=== PATIENT | male | born 1955 | race Caucasian/White ===

== ENCOUNTER → 2017-10-05 | Outpatient (REF) | payer BC ==
[2017-10-05 12:48] LABS: INFLUENZA A AMPLIFICATION POSITIVE (NEGATIVE); INFLUENZA B AMPLIFICATION NEGATIVE (NEGATIVE); RSV AMPLIFICATION NEGATIVE (NEGATIVE)
== END ==
LOC: M LAB REF 12:00
DX: J11.1 Influenza due to unidentified influenza virus with other respiratory manifestations (principal)
CPT/HCPCS: 87502

== ENCOUNTER → 2017-10-18 | Outpatient (CLI) | payer BC | LOC: M WUC 10:35 | DX: S20.222A Contusion of left back wall of thorax, initial encounter (principal) | CPT/HCPCS: 71101 ==

== ENCOUNTER → 2019-08-21 | Outpatient (REF) | payer BC ==
[2019-08-21 19:33] LABS: APPEARANCE, URINE CLEAR (CLEAR); BACTERIA, URINE AUTO NEGATIVE (NEGATIVE); BILIRUBIN, URINE AUTO NEGATIVE (NEGATIVE); BLOOD, URINE BLOOD NEGATIVE (NEGATIVE); COLOR, URINE YELLOW (YELLOW); GLUCOSE, URINE (UA) AUTO NEGATIVE (NEGATIVE); KETONE, URINE AUTO TRACE mg/dL (NEGATIVE); LEUKOCYTE ESTERASE, URINE AUTO NEGATIVE (NEGATIVE); MUCUS, URINE SMALL (NEGATIVE); NITRITE, URINE AUTO NEGATIVE (NEGATIVE); PROTEIN, URINE AUTO 1+ mg/dL (NEGATIVE); RBC, URINE AUTO 4 /HPF (0-3); SPECIFIC GRAVITY URINE AUTO 1.023 (1.002-1.035); SQUAMOUS EPITHELIAL CELL UR AU 0 /HPF (0-6); WBC, URINE AUTO 1 /HPF (0-3)
== END ==
LOC: M LAB REF 18:40
PROVIDERS: ATTEND Nurse Practitioner Adult Health
DX: D64.9 Anemia, unspecified (principal)

== ENCOUNTER → 2019-09-23 | Outpatient (REF) | payer BC ==
[2019-09-23 19:24] LABS: BASO # 0.1 10^3/uL (0.0-0.2); BASO % 0.6 % (0.0-1.0); EOS # 0.5 10^3/uL (0.0-0.5); EOS % 5.7 % (0.0-3.0); HEMATOCRIT 39.5 % (42.0-52.0); HEMOGLOBIN 12.6 g/dl (13.5-17.5); LYMPH # 1.9 10^3/uL (1.5-5.0); LYMPH % 21.9 % (24.0-44.0); MEAN CORPUSCULAR HEMOGLOBIN 27.7 pg (27.0-33.0); MEAN CORPUSCULAR HGB CONC 31.9 g/dl (32.0-36.5); MEAN CORPUSCULAR VOLUME 86.8 fl (80.0-96.0); MONO # 0.7 10^3/uL (0.0-0.8); MONO % 8.2 % (0.0-5.0); NEUTROPHILS # 5.5 10^3/uL (1.5-8.5); NEUTROPHILS % 63.4 % (36.0-66.0); PLATELET COUNT, AUTOMATED 232 10^3/uL (150-450); RED BLOOD COUNT 4.55 10^6/uL (4.30-6.10); WHITE BLOOD COUNT 8.7 10^3/uL (4.0-10.0)
[2019-09-23 19:30] LABS: ALBUMIN 4.6 GM/DL (3.2-5.2); ALT/SGPT 21 U/L (12-78); BILIRUBIN,TOTAL 1.1 MG/DL (0.2-1.0); BLOOD UREA NITROGEN 17 MG/DL (7-18); CALCIUM LEVEL 9.3 MG/DL (8.8-10.2); CARBON DIOXIDE LEVEL 26 MEQ/L (21-32); CHLORIDE LEVEL 104 MEQ/L (98-107); CHOLESTEROL LEVEL 143 MG/DL (<200); CHOLESTEROL RISK RATIO 3.487 (<5); CREATININE FOR GFR 1.09 MG/DL (0.70-1.30); GLOMERULAR FILTRATION RATE > 60.0 (>49); GLUCOSE, FASTING 92 MG/DL (70-100); HDL CHOLESTEROL 41 MG/DL (>40); LDL CHOLESTEROL 72 MG/DL (<100); NON-HDL-C 102 MG/DL; POTASSIUM SERUM 4.5 MEQ/L (3.5-5.1); SODIUM LEVEL 138 MEQ/L (136-145); TOTAL PROTEIN 7.4 GM/DL (6.4-8.2); TRIGLYCERIDES LEVEL 150 MG/DL (<150)
[2019-09-23 19:39] LABS: VITAMIN B12 LEVEL 1335 PG/ML (247-911)
[2019-09-23 19:42] LABS: HEMOGLOBIN A1c 6.5 %
== END ==
LOC: M LAB REF 16:18
PROVIDERS: ATTEND Nurse Practitioner Adult Health
DX: E11.9 Type 2 diabetes mellitus without complications (principal); E78.5 Hyperlipidemia, unspecified; I10 Essential (primary) hypertension

== ENCOUNTER → 2020-01-03 | Outpatient (REF) | payer BC ==
[2020-01-03 15:19] LABS: BASO # 0.1 10^3/uL (0.0-0.2); BASO % 0.6 % (0.0-1.0); EOS # 0.5 10^3/uL (0.0-0.5); EOS % 5.8 % (0.0-3.0); HEMATOCRIT 38.3 % (42.0-52.0); HEMOGLOBIN 12.3 g/dl (13.5-17.5); LYMPH % 23.9 % (24.0-44.0); MEAN CORPUSCULAR HGB CONC 32.1 g/dl (32.0-36.5); MONO # 0.8 10^3/uL (0.0-0.8); MONO % 9.4 % (0.0-5.0); NEUTROPHILS % 59.8 % (36.0-66.0); PLATELET COUNT, AUTOMATED 296 10^3/uL (150-450); WHITE BLOOD COUNT 8.3 10^3/uL (4.0-10.0)
== END ==
LOC: M LAB REF 15:09
PROVIDERS: ATTEND Physician Assistant
DX: M25.579 Pain in unspecified ankle and joints of unspecified foot (principal)

== ENCOUNTER 2021-03-14 16:36 | Inpatient (IN) | payer BC ==
[~2021-03-14] VITALS: Ht 180.3 cm; Wt 78.8 kg
--- NOTE | 2021-03-14 17:04 | REP ---
INDICATION: fall COMPARISON: None. TECHNIQUE: Axial noncontrast images from the skull base to the thoracic inlet with coronal reformations. This CT examination was performed using the following dose reduction techniques: Automated exposure control, adjustment of mA and/or kv according to the patient's size, and use of iterative reconstruction technique. FINDINGS: Atrophy with periventricular leukomalacia and microvascular ischemic changes are appreciated. The ventricles and sulci are symmetric. Rossi-white differentiation is maintained. There is no evidence for acute intracranial hemorrhage, mass/mass effect, pathology or infarction. No extra-axial fluid collection. Calvarium is intact. Paranasal sinuses and mastoid air cells are clear. IMPRESSION: Atrophy and microvascular ischemic changes. No acute intracranial hemorrhage, infarction, or mass/mass effect. <Electronically signed by Juan Owens > 03/14/21 [id number]
--- NOTE | 2021-03-14 17:05 | REP ---
INDICATION: fall COMPARISON: None. TECHNIQUE: Axial noncontrast images from the skull base to the thoracic inlet with coronal and sagittal re-formations This CT examination was performed using the following dose reduction techniques: Automated exposure control, adjustment of mA and/or kv according to the patient's size, and use of iterative reconstruction technique. FINDINGS: Alignment is maintained. Advanced multilevel degenerative changes are appreciated including osteophytosis, endplate sclerosis, disc space narrowing and facet hypertrophy. No acute fracture/compression injury or subluxation. Paravertebral soft tissues are within normal limits. IMPRESSION: Advanced multilevel degenerative changes. No evidence for acute pathology or trauma/injury. <Electronically signed by Juan Owens > 03/14/21 [id number]
[2021-03-14] MEDS: LR 1,000 ML IV SCH (17:40)
[2021-03-14 18:20] LABS: BASO # 0.1 10^3/uL (0.0-0.2); BASO % 0.3 % (0.0-1.0); EOS # 0.1 10^3/uL (0.0-0.5); EOS % 0.5 % (0.0-3.0); HEMATOCRIT 32.2 % (42.0-52.0); HEMOGLOBIN 10.6 g/dl (13.5-17.5); LYMPH # 0.9 10^3/uL (1.5-5.0); LYMPH % 6.1 % (24.0-44.0); MEAN CORPUSCULAR HEMOGLOBIN 28.9 pg (27.0-33.0); MEAN CORPUSCULAR HGB CONC 32.9 g/dl (32.0-36.5); MEAN CORPUSCULAR VOLUME 87.7 fl (80.0-96.0); MONO # 0.8 10^3/uL (0.0-0.8); MONO % 5.3 % (2.0-8.0); NEUTROPHILS # 12.5 10^3/uL (1.5-8.5); NEUTROPHILS % 87.2 % (36.0-66.0); PLATELET COUNT, AUTOMATED 248 10^3/uL (150-450); RED BLOOD COUNT 3.67 10^6/uL (4.30-6.10); WHITE BLOOD COUNT 14.4 10^3/uL (4.0-10.0)
[2021-03-14 18:50] LABS: ALBUMIN 4.1 GM/DL (3.2-5.2); BILIRUBIN,DIRECT 0.2 MG/DL (0.0-0.2); BILIRUBIN,TOTAL 1.4 MG/DL (0.2-1.0); TOTAL PROTEIN 7.2 GM/DL (6.4-8.2)
[2021-03-14] MEDS ORDERED: ATOR40TA75 PO (19:06)
[2021-03-14] MEDS ORDERED: METF500T13 PO (19:06)
[2021-03-14] MEDS ORDERED: VALS160T3 PO (19:06)
[2021-03-14] MEDS ORDERED: ZYLO300T6 PO (19:06)
[2021-03-14] MEDS ORDERED: HYDR12CA PO (19:06)
[2021-03-14] MEDS ORDERED: METO1TAB32 PO (19:06)
[2021-03-14] MEDS ORDERED: AMLO1TAB24 PO (19:06)
--- NOTE | 2021-03-14 19:10 | REP ---
INDICATION: syncope vs seizure COMPARISON: None. TECHNIQUE: Portable AP view of the chest FINDINGS: The mediastinum and cardiac silhouette are within normal limits for portable technique. The lung hernandez are clear without acute consolidation, effusion, or pneumothorax. Skeletal structures are intact. IMPRESSION: No acute cardiopulmonary process appreciated. <Electronically signed by Juan Owens > 03/14/21 [id number]
--- NOTE | 2021-03-14 19:11 | ECGEPIP ---
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
[2021-03-14] MEDS ORDERED: HOME MED LIST COMPLETE! XX SCH (19:25)
[2021-03-14 19:47] LABS: RSV AMPLIFICATION NEGATIVE (NEGATIVE)
[2021-03-14 21:11] LABS: PROLACTIN 19.8 NG/ML (2.1-17.7)
[2021-03-14] MEDS: ATORVASTATIN 20 MG TAB PO SCH (22:06)
[2021-03-14 22:40] VITALS: BP 140/61
[2021-03-15] VITALS: BP 133/65
[2021-03-15] MEDS: LR 1,000 ML IV SCH ×2 (03:40→13:40)
[2021-03-15 04:09] VITALS: BP 121/56
--- NOTE | 2021-03-15 05:16 | HPE ---
HISTORY AND PHYSICAL DATE OF ADMISSION: 03/14/2021 CHIEF COMPLAINT: Loss of consciousness. HISTORY OF PRESENT ILLNESS: This is a 65-year-old male, who was at [facility]. He finished work at approximately 3 p.m. He left work, walked out the back door and then he does not remember anything after that until he woke up when the ambulance came. Per emergency medical service (EMS), a bystander thought he had a seizure. Emergency medical service (EMS) did not see any seizure activity. The patient on arrival was alert and oriented. He did hit the back of his head. He had a large hematoma. Upon arrival, his blood pressure was 105/55, pulse of 87, respiratory rate was 18, temperature is 97.4, pulse oximetry was 95%. Laboratory studies were drawn. White count was 14.4, hemoglobin 10.6, hematocrit 32.2, platelets were 248, total bilirubin was 1.4, AST 41, ALT 26, total creatine kinase was 75. COVID test was negative, none detected. Non-fasting glucose was 155, sodium 142, potassium 3.6, chloride 102, Co2 23, BUN was 22, creatinine was slightly elevated at 1.7, troponin was 0.02. An electrocardiogram (EKG) was done, which showed sinus rhythm with slight sinus arrhythmia, rate of 80. Imaging was obtained. CT of the head showed atrophy and microvascular ischemic changes. No acute intracranial hemorrhage, infarction or mass effect. CT of the cervical spine was done showed advanced multilevel degenerative changes. No evidence for acute pathology or trauma injury. Chest x-ray showed no acute cardiopulmonary process. The patient states that he does not remember too much of the day. He states that he had a similar incident 3 or 4 years ago after having his blood pressure medicine changed. . His only other complaint that between 1 to 2 months ago when he goes to do or reach for something, his hands tremor slightly. Currently, he has no complaint of headache. He had no loss of bowel or bladder control. He does not appear postictal. Assessment was done and the patient will be admitted to observation status to the PCU unit for closed head injury, syncopal episode. Discussed with Dr. Mckeon. He recommends an electroencephalogram (EEG) in the a.m. Prolactin level, which has been ordered and is pending. The patient will be admitted to observation status to the PCU unit for further workup and observation. He will be admitted to the service of the hospitalist. Primary care provider is Dr. Godinez from [facility]. ALLERGIES: No known allergies. SOCIAL HISTORY: He lives with his significant other. ETOH: He states he drinks beer about once a week. Smokes one pack of cigarettes per day. Recreational drug use none. PAST MEDICAL HISTORY: 1. Non-insulin dependent diabetes mellitus type 2 2. Hypertension. 3. Hypercholesterolemia. 4. Gout. PAST SURGICAL HISTORY: Release of right trigger finger, ring finger. HOME MEDICATIONS: Amlodipine 5 mg by mouth daily, which I will currently hold as his blood pressure is running 105 systolic, hydrochorothiazide 12.5 mg by mouth daily, which I will hold as creatinine is up slightly. Metoprolol succinate 25 mg by mouth daily, which I will hold secondary to blood pressure systolic being 105, allopurinol 300 mg by mouth daily, atorvastatin 40 mg by mouth every night at bedtime, metformin 500 mg by mouth twice a day with meals. FAMILY HISTORY: Reviewed and was noncontributory. REVIEW OF SYSTEMS: No complaint of headache. No blurred or double vision. No fever, no chills, no tinnitus, no hoarseness. No difficulty swallowing. No lightheadedness or vertigo. States he just does not really remember anything after working and walking out the back door when leaving work. Cardiovascular: No complaints of chest pain, shortness of breath, palpitations or edema. Respiratory: No chronic cough, no sputum production, no hemoptysis, no orthopnea, no wheeze. Gastrointestinal (GI): No nausea, vomiting or diarrhea. States he has not had much appetite over the last three days. No complaints of abdominal pain. No hematochezia or melena. No rectal bleeding. Musculoskeletal: No joint redness or swelling, other than scalp hematoma secondary to the syncopal episode. Endocrine: History of non-insulin depending diabetes type 2. Hematological: History of anemia and his hemoglobin and hematocrit are down slightly and will check an iron level. Neurological: As in history of present illness. No previous history of seizures. Psychological: No anxiety, depression or suicidal ideation. PHYSICAL EXAMINATION: 65-year-old cooperative male. Height 71 inches, weight 81.8 kg. Body mass index (BMI) 25.2. Oxygen saturation 94% on room air. Blood pressure 105/55, pulse 87, respirations 18, temperature 97.4. The patient is alert and oriented x3. Palpable hematoma back of the head. Pupils equal and react to light. Extraocular movements intact. Sclerae clear. Conjunctivae normal. No facial asymmetry. Small cuts on either side of his upper nose, abrasions from is glasses. Pharynx: [place] and moist. Tongue is midline. Neck is supple without lymphadenopathy. No thyromegaly, no goiter. Carotids 2+ without bruit. TMs are pearly bilaterally. Ear canals are clear bilaterally. Chest: Clear to auscultation without wheeze or retraction. Heart: Regular. Abdomen is benign. Bowel sounds are positive. Genitourinary () and rectal not done. Extremities show equal strength. Full range of motion. No cyanosis, clubbing or edema. Peripheral pulse equal and palpable bilaterally. Skin is warm and dry. IMPRESSION/PLAN: Closed head injury, syncopal episode, questionable seizure. Will admit to the service of the hospitalist to the PCU unit. Vital signs and neuro checks every 4 hours. Follow up on prolactin level. Order electroencephalogram (EEG) for the a.m. Place on telemetry. Vital signs and neuro checks every 2 hours. Questionable syncope. Will do carotid Doppler, 2D echocardiogram, electrocardiogram (EKG) in the a.m. Place on telemetry. History of hypertension. Blood pressure soft at 100 to 110, will hold antihypertensives and restart as needed. Non-insulin dependent diabetes mellitus type 2. Fingerstick blood sugars twice a day. Continue metformin. Hypercholesterolemia. Continue atorvastatin. Deep venous thrombosis (DVT) prophylaxis. TEDs and ambulation.
[2021-03-15 06:01] LABS: BASO % 0.4 % (0.0-1.0); EOS # 0.3 10^3/uL (0.0-0.5); EOS % 2.4 % (0.0-3.0); HEMATOCRIT 29.6 % (42.0-52.0); HEMOGLOBIN 9.7 g/dl (13.5-17.5); LYMPH # 1.7 10^3/uL (1.5-5.0); LYMPH % 16.5 % (24.0-44.0); MEAN CORPUSCULAR HEMOGLOBIN 28.4 pg (27.0-33.0); MEAN CORPUSCULAR HGB CONC 32.8 g/dl (32.0-36.5); MEAN CORPUSCULAR VOLUME 86.5 fl (80.0-96.0); MONO # 0.8 10^3/uL (0.0-0.8); MONO % 8.1 % (2.0-8.0); NEUTROPHILS # 7.4 10^3/uL (1.5-8.5); NEUTROPHILS % 72.2 % (36.0-66.0); PLATELET COUNT, AUTOMATED 217 10^3/uL (150-450); RED BLOOD COUNT 3.42 10^6/uL (4.30-6.10); WHITE BLOOD COUNT 10.2 10^3/uL (4.0-10.0)
[2021-03-15 06:29] LABS: HEMOGLOBIN A1c 5.5 %
[2021-03-15 06:46] LABS: ALBUMIN 3.5 GM/DL (3.2-5.2); ALT/SGPT 24 U/L (12-78); BILIRUBIN,TOTAL 1.6 MG/DL (0.2-1.0); BLOOD UREA NITROGEN 17 MG/DL (7-18); CARBON DIOXIDE LEVEL 27 MEQ/L (21-32); CHLORIDE LEVEL 107 MEQ/L (98-107); CPK CREATINE PHOSPHOKINASE 1477 U/L (39-308); GLOMERULAR FILTRATION RATE > 60.0 (>49); GLUCOSE, FASTING 91 MG/DL (70-100); POTASSIUM SERUM 2.7 MEQ/L (3.5-5.1); SODIUM LEVEL 142 MEQ/L (136-145); TOTAL PROTEIN 6.8 GM/DL (6.4-8.2); TROPONIN I 0.04 NG/ML (< 0.10)
[2021-03-15] MEDS ORDERED: KCL 10MEQ/100ML SWI (KRUN) 10 MEQ in IV 1 EA IV ONE (06:55)
[2021-03-15] MEDS ORDERED: POTASSIUM CHLORIDE 10 MEQ SR TABLET PO ONE ×3 (07:00→15:50)
[2021-03-15 07:23] LABS: MAGNESIUM LEVEL 0.6 MG/DL (1.8-2.4)
--- NOTE | 2021-03-15 07:27 | ECGEPIP ---
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
[2021-03-15] MEDS ORDERED: KCL 10MEQ/100ML SWI (KRUN) 10 MEQ in IV 1 EA IV SCH (07:29)
[2021-03-15] MEDS ORDERED: MAG SULF 1GM/100ML (MAG RUN) 1 GM in IV 1 EA IV SCH (07:30)
[2021-03-15 08:00] VITALS: BP 135/74
[2021-03-15] MEDS ORDERED: metFORMIN (GLUCOPHAGE) 500MG TAB PO SCH (08:00)
--- NOTE | 2021-03-15 08:22 | REP ---
INDICATION: syncope COMPARISON: None. TECHNIQUE: Real-time ultrasound evaluation and duplex Doppler interrogation of the extracranial carotid vasculature is performed. FINDINGS: Antegrade flow is observed in both vertebral arteries. Right carotid: The right common carotid artery shows diffuse intimal thickening but is otherwise unremarkable. There ismild mixed plaquing in the right carotid bulb and proximal ICA on two-dimensional scanning. Color flow and spectral Doppler interrogation are unremarkable on the right. Velocity chart right carotid: Right CCA PSV: 95 cm/S Right ICA PSV: 126 cm/S Right ICA EDV: 15 cm/S Right ECA PSV: 108 cm/S Right ICA/CCA ratio: 1.3 Left carotid: The left common carotid artery shows diffuse intimal thickening but is otherwise unremarkable. There is mild mixed plaquing in the left carotid bulb and proximal ICA on two-dimensional scanning. Color flow and spectral Doppler interrogation are unremarkable on the left. Velocity chart left carotid: Left CCA PSV: 137 cm/S Left ICA PSV: 98 cm/S Left ICA EDV: 23 cm/S Left ECA PSV: 101 cm/S Left ICA/CCA ratio: 0.7 IMPRESSION: Less than 50% category narrowing in the right internal carotid artery by Doppler velocity criteria. Less than 50% category narrowing in the left ICA by Doppler velocity criteria. <Electronically signed by Eren Waters > 03/15/21 [id number]
[2021-03-15] MEDS: MAG SULF 1GM/100ML (MAG RUN) 1 GM in IV 1 EA IV SCH ×2 (08:46→09:50)
[2021-03-15] MEDS: allopurinoL 300 MG TAB PO SCH (08:46)
--- NOTE | 2021-03-15 09:10 | IPNPDOC ---
Text Note Date of Service The patient was seen on 03/15/21. NOTE Subjective: Patient seen and examined at bedside. No acute overnight events reported. Patient voices no new medical complaints this morning. Recently has been set up to follow with PCP Dr. Godinez from [facility]. Objective: General: NAD, lying comfortably in bed HEENT: NC/AT, EOMI, PERRL Lungs: CTA B/L Heart: +S1S2, RRR Abd: soft, NT, +BS Ext: no edema Neuro: no gross focal deficits Psych: AAOx3 A/P: 65M with PMHx HTN, DM, HLD and possibly recent gastroenteritis with poor PO intake, presents for unwitnessed syncopal episode. #syncope - continue telemetry - no events noted - EEG pending, echo pending, carotid doppler - check orthostatics - fall precautions, PT #seizure? - elevated prolactin, unwitnessed syncopal episode - discussed with neurology, EEG pending, seizure precautions #rhabdomyolysis - recent LOC, possibly on the ground for prolonged duration - elevated CK - renal function normal - monitor CK #HTN - home meds on hold - continue to monitor #DM - ISS, carb consistent diet #Gout #HLD - continue statin therapy #nicotine abuse - counselling provided at bedside #DVT prophylaxis - mechanical VS,Fishbone, I+O VS, Fishbone, I+O Laboratory Tests 03/14/21 18:10 03/15/21 05:28 Vital Signs Date Time Temp Pulse Resp B/P (MAP) Pulse Ox O2 Delivery O2 Flow Rate FiO2 03/15/21 08:00 98.4 61 18 135/74 (94) 94 03/15/21 00:00 Room Air I&O- Last 24 Hours up to 6 AM 03/15/21 06:00 Intake Total 578 ml Output Total 100 ml Balance 478 ml SHANON LEMUS MD Mar 15, 2021 09:10
[2021-03-15 09:12] LABS: APPEARANCE, URINE CLEAR (CLEAR); BACTERIA, URINE AUTO NEGATIVE (NEGATIVE); BILIRUBIN, URINE AUTO NEGATIVE (NEGATIVE); BLOOD, URINE BLOOD 1+ (NEGATIVE); COLOR, URINE YELLOW (YELLOW); GLUCOSE, URINE (UA) AUTO NEGATIVE (NEGATIVE); KETONE, URINE AUTO NEGATIVE (NEGATIVE); LEUKOCYTE ESTERASE, URINE AUTO NEGATIVE (NEGATIVE); MUCUS, URINE SMALL (NEGATIVE); NITRITE, URINE AUTO NEGATIVE (NEGATIVE); PROTEIN, URINE AUTO 1+ mg/dL (NEGATIVE); RBC, URINE AUTO 2 /HPF (0-3); SPECIFIC GRAVITY URINE AUTO 1.014 (1.002-1.035); SQUAMOUS EPITHELIAL CELL UR AU 0 /HPF (0-6); UROBILINOGEN, URINE AUTO 0.2 mg/dL (0.0-2.0); WBC, URINE AUTO 1 /HPF (0-3)
[2021-03-15 12:00] VITALS: BP 145/65
[2021-03-15 13:11] LABS: BLOOD UREA NITROGEN 15 MG/DL (7-18); CALCIUM LEVEL 8.4 MG/DL (8.8-10.2); CARBON DIOXIDE LEVEL 29 MEQ/L (21-32); CHLORIDE LEVEL 106 MEQ/L (98-107); GLOMERULAR FILTRATION RATE > 60.0 (>49); GLUCOSE, FASTING 87 MG/DL (70-100); MAGNESIUM LEVEL 1.5 MG/DL (1.8-2.4); POTASSIUM SERUM 3.4 MEQ/L (3.5-5.1); SODIUM LEVEL 141 MEQ/L (136-145)
[2021-03-15] MEDS ORDERED: MAG SULF 1GM/100ML (MAG RUN) 1 GM in IV 1 EA IV ONE (15:50)
[2021-03-15] MEDS ORDERED: ANALGESIC BALM CRM 3OZ TOP PRN (15:55)
[2021-03-15 20:02] VITALS: BP 139/69
[2021-03-15] MEDS: ATORVASTATIN 20 MG TAB PO SCH (20:04)
--- NOTE | 2021-03-15 21:43 | ECHO ---
ECHOCARDIOGRAM DATE OF PROCEDURE: 03/15/2021 Age: 65 Gender: Male Height: 180 cm Weight: 82 kg REFERRING PHYSICIAN: Dr. Ramsey and Liz Grace NP INDICATION: Syncope. MEASUREMENTS: IVS 1.2 cm LV 4.5 cm LVPW 1.3 cm LA 4.3 cm Aorta 3.4 cm IVC 1.6 cm DOPPLER MEASUREMENT Mitral E wave velocity 86 Mitral A wave 86 E prime septal 10.1 E prime lateral 11.0 FINDINGS: This study is of acceptable technical quality. Patient is in sinus rhythm. Left ventricle is normal size. Mild left ventricular hypertrophy is noted. Calculated LV EF is 59% by 2D imaging. My visual estimate is around 65 to 70%. Right ventricle is of normal size and systolic function. Both atria appear mildly enlarged. Aortic valve is mildly sclerotic, but is normal mobility. Mitral and tricuspid valves appear normal. Pulmonic valve was not well seen. No pericardial effusion is noted. Inferior vena cava is of normal size. Aortic root and aortic arch appear normal. Doppler interrogation reveals competent aortic valve. There is mild mitral insufficiency. Tricuspid valve is functionally competent. Mitral inflow pattern and tissue Doppler imaging of the mitral annulus revealed most likely normal LV diastolic function. CONCLUSIONS: 1. Study is of acceptable technical quality, underlying sinus rhythm. 2. Normal LV size with mild LVH and preserved LV systolic function. Likely normal diastolic function. 3. No hemodynamically significant valvular disease. 4. Normal central venous pressure. 5. Unable to estimate pulmonary artery pressure. 6. No findings to explain syncopal event. MTDD
[2021-03-16] VITALS (12 sets, daily range): BP systolic 141–174; BP diastolic 66–88
--- NOTE | 2021-03-16 05:28 | IPNPDOC ---
Text Note Date of Service The patient was seen on 03/16/21. NOTE Alerted by nursing staff at 0500 that patient was confused and acting bizarre. I came and examined the patient who told me that he feels as though this experience was a figment of his imagination and he did not understand why he was in the hospital. Patient was alert to person and place, but not time. Patient's speech is clear, however rambles at times. Rest of neuro exam unremarkable. Nursing staff reported that patient has ripped his iv out and removed his telemetry in his confusion. F/u ct head, b1, b12 i am also placing cinc protocol for now d/t suspicion for alcoholism/possible wernicke encephalopathy VS,Josebone, I+O VS, Josebone, I+O Laboratory Tests 03/15/21 05:28 03/15/21 12:08 Vital Signs Date Time Temp Pulse Resp B/P (MAP) Pulse Ox O2 Delivery O2 Flow Rate FiO2 03/16/21 04:00 98.6 70 18 160/70 (100) 98 Room Air I&O- Last 24 Hours up to 6 AM 03/16/21 06:00 Intake Total 2350 ml Balance 2350 ml JEREMIAS PARKER Mar 16, 2021 05:28
[2021-03-16] MEDS: LR 1,000 ML IV SCH ×3 (06:07→15:08)
[2021-03-16] MEDS: LORazepam 2 MG TAB PO PRN ×2 (06:24→09:27)
--- NOTE | 2021-03-16 07:11 | REPVR ---
PROCEDURE INFORMATION: Exam: CT Head Without Contrast Exam date and time: 03/16/2021 5:46 AM Age: 65 years old Clinical indication: Injury or trauma; Fall; Blunt trauma (contusions or hematomas); Additional info: Dizzyness, confusion, recent fall struck head TECHNIQUE: Imaging protocol: Computed tomography of the head without contrast. Radiation optimization: All CT scans at this facility use at least one of these dose optimization techniques: automated exposure control; mA and/or kV adjustment per patient size (includes targeted exams where dose is matched to clinical indication); or iterative reconstruction. COMPARISON: CT Head without contrast 03/14/2021 4:50 PM FINDINGS: Brain: Stable. No acute intracranial hemorrhage or mass effect. Preservation of the zhou-white matter differentiation. Cerebral ventricles: Unremarkable. No ventriculomegaly. Paranasal sinuses: Ethmoid sinus mucosal thickening. No fluid levels. Mastoid air cells: Visualized mastoid air cells are well aerated. Vasculature: Carotid and vertebral artery calcification. Bones/joints: Bones are intact. No acute fracture. Soft tissues: Unremarkable. IMPRESSION: No acute intracranial abnormality. Electronically signed by: Juan Spence On 03/16/2021 07:11:22 AM
[2021-03-16 07:39] LABS: BASO % 0.3 % (0.0-1.0); EOS # 0.4 10^3/uL (0.0-0.5); EOS % 3.7 % (0.0-3.0); HEMATOCRIT 31.6 % (42.0-52.0); HEMOGLOBIN 10.3 g/dl (13.5-17.5); LYMPH # 1.2 10^3/uL (1.5-5.0); LYMPH % 11.7 % (24.0-44.0); MEAN CORPUSCULAR HEMOGLOBIN 28.6 pg (27.0-33.0); MEAN CORPUSCULAR HGB CONC 32.6 g/dl (32.0-36.5); MEAN CORPUSCULAR VOLUME 87.8 fl (80.0-96.0); MONO # 0.8 10^3/uL (0.0-0.8); MONO % 7.3 % (2.0-8.0); NEUTROPHILS # 8.1 10^3/uL (1.5-8.5); NEUTROPHILS % 76.2 % (36.0-66.0); PLATELET COUNT, AUTOMATED 199 10^3/uL (150-450); WHITE BLOOD COUNT 10.6 10^3/uL (4.0-10.0)
[2021-03-16] MEDS: FOLIC ACID 1 MG TAB PO SCH (07:58)
[2021-03-16] MEDS: MULTIVITAMINS/MINERALS THERAP 1 TAB PO SCH (07:58)
[2021-03-16] MEDS: THIAMINE 100 MG TAB PO SCH ×2 (07:58→20:11)
[2021-03-16] MEDS: allopurinoL 300 MG TAB PO SCH (07:59)
[2021-03-16 08:08] LABS: ALBUMIN 3.7 GM/DL (3.2-5.2); ALT/SGPT 26 U/L (12-78); BILIRUBIN,TOTAL 1.6 MG/DL (0.2-1.0); BLOOD UREA NITROGEN 10 MG/DL (7-18); CALCIUM LEVEL 8.8 MG/DL (8.8-10.2); CARBON DIOXIDE LEVEL 26 MEQ/L (21-32); CHLORIDE LEVEL 107 MEQ/L (98-107); CPK CREATINE PHOSPHOKINASE 723 U/L (39-308); CREATININE FOR GFR 0.69 MG/DL (0.70-1.30); GLOMERULAR FILTRATION RATE > 60.0 (>49); GLUCOSE, FASTING 116 MG/DL (70-100); POTASSIUM SERUM 3.9 MEQ/L (3.5-5.1); SODIUM LEVEL 137 MEQ/L (136-145); TOTAL PROTEIN 6.9 GM/DL (6.4-8.2)
[2021-03-16 09:48] LABS: VITAMIN B12 LEVEL 486 PG/ML (247-911)
[2021-03-16 11:11] LABS: MAGNESIUM LEVEL 1.4 MG/DL (1.8-2.4)
[2021-03-16] MEDS: NICOTINE 14 MG/24 HR TRANSDERMAL TD SCH (11:28)
[2021-03-16] MEDS ORDERED: OXAZEPAM 10 MG CAP PO PRN (11:45)
[2021-03-16] MEDS: MAG SULF 1GM/100ML (MAG RUN) 1 GM in IV 1 EA IV SCH ×2 (15:08→16:24)
[2021-03-16] MEDS: amLODIPine 5 MG TAB PO SCH (17:05)
[2021-03-16 17:37] LABS: ABG O2 SATURATION 95.4 % (95.0-99.0); ABG PARTIAL PRESSURE CO2 37.4 mmHg (35.0-45.0); ABG PARTIAL PRESSURE O2 76.4 mmHg (75.0-100.0); ABG STANDARD HCO3 25.4 MEQ/L (22.0-26.0); ABG TOTAL CO2 26.2 MEQ/L (23.0-31.0); ABG pH (ARTERIAL) 7.443 UNITS (7.350-7.450)
--- NOTE | 2021-03-16 18:28 | IPNPDOC ---
Text Note Date of Service The patient was seen on 03/16/21. NOTE Subjective: Patient was examined at bedside. Patient is disoriented only oriented to self not to time and place. Overnight patient was very agitated and ripped off his IV line. He was put on CIWA protocol. And did get repeat CT head which showed no abnormalities. He did receive Ativan this morning as per the CIWA protocol and has sitter beside him. Objective: General: Patient was laying in bed, disoriented, patient was given Ativan about 30 minutes prior to my examination Cardiac: S1 and S2 normal, regular rate and rhythm. Lungs: Clear to auscultation bilaterally, no wheezes or rhonchi appreciated. Abdomen: Soft, nontender, positive bowel sounds appreciated. Extremities: No edema Neurology: Patient is agitated, not oriented to place and time. Assessment and plan: 65-year-old male with a past medical history of hypertension, upj-uoriejh-xevitubxv diabetes mellitus, dyslipidemia, gout who was brought into the ED by EMS after sustaining a syncopal episode just after walking out of his work. As per the HPI the bystander did mention he had some seizure-like a ctivity but EMS did not note any on arrival. Patient does not remember any of the events. In the ED patient was evaluated and had a CT done which showed no acute pathology. He was admitted for further evaluation and treatment. Plan: Syncopal episode: -Patient initial imaging showed no acute events. -We will continue monitoring on telemetry [patient had no acute events on telemetry overnight.] -Continue fall precautions. -Echo order was already placed Questionable seizure activity: -Patient has mild elevation in prolactin, it was not unwitnessed syncopal episode. -EEG pending. -Continue seizure precautions Questionable alcohol withdrawal: -Given the patient's admission for alcohol withdrawal he might be having one given his agitation overnight. -He did get a repeat CT done overnight which was negative. -We will continue CIWA protocol -Patient also has serax as needed on board -We will start him on thiamine, folic acid and multivitamin -We will get thiamine and folic acid levels as well Altered mental status: -Complete work-up for altered mental status was ordered. -Blood cultures today -UA with reflex culture -We will get an ammonia level -We will get an ABG. Electrolyte abnormalities: -Patient was hypokalemic and hypomagnesium on the day of presentation. -His potassium was replaced and magnesium was replaced yesterday. -His potassium is back to baseline today. -His mag was low and replaced with Mg run today. Hypertension: -Patient SBP was in 170s this afternoon and was started on home medication -Amlodipine 5 mg p.o. daily Diabetes mellitus: -We will continue insulin sliding scale. -Hypoglycemic protocol in place -Continue consistent carbohydrate diet Gout: -We will continue home allopurinol 300 mg p.o. daily Dyslipidemia: -We will continue atorvastatin 40 mg p.o. nightly Current smoker: -We will start him on nicotine patch. DVT prophylaxis: -Teds and sequentials Disposition: Pending clinical improvement. Attending Attestation: I saw and evaluated patient. I agree with the findings and plan of care as documented in the residents note. Unwitnessed syncopal event, likely with head trauma, complicated with post-concussion confusion possibly with underlying dementia. Discussed with family and neurology. VS,Fishbone, I+O VS, Fishbone, I+O Laboratory Tests 03/16/21 07:24 Vital Signs Date Time Temp Pulse Resp B/P (MAP) Pulse Ox O2 Delivery O2 Flow Rate FiO2 03/16/21 17:05 74 174/79 03/16/21 11:29 97.4 17 96 Room Air I&O- Last 24 Hours up to 6 AM 03/16/21 06:00 Intake Total 2350 ml Output Total 500 ml Balance 1850 ml Florence Landeros MD Mar 16, 2021 18:28 SHANON LEMUS MD Mar 17, 2021 06:23
[2021-03-16] MEDS: ATORVASTATIN 20 MG TAB PO SCH (20:11)
[2021-03-17] VITALS (7 sets, daily range): BP systolic 130–171; BP diastolic 64–79
[2021-03-17] MEDS ORDERED: ACETAMINOPHEN TAB 650MG DOSE (2X325MG) PO PRN (00:10)
[2021-03-17] MEDS: NS 1,000 ML IV SCH ×3 (00:46→21:44)
[2021-03-17 06:20] LABS: BASO % 0.3 % (0.0-1.0); EOS # 0.4 10^3/uL (0.0-0.5); EOS % 3.5 % (0.0-3.0); HEMATOCRIT 32.7 % (42.0-52.0); HEMOGLOBIN 10.7 g/dl (13.5-17.5); LYMPH % 9.6 % (24.0-44.0); MEAN CORPUSCULAR HEMOGLOBIN 29.2 pg (27.0-33.0); MEAN CORPUSCULAR HGB CONC 32.7 g/dl (32.0-36.5); MEAN CORPUSCULAR VOLUME 89.1 fl (80.0-96.0); MONO # 0.9 10^3/uL (0.0-0.8); MONO % 8.8 % (2.0-8.0); NEUTROPHILS # 7.8 10^3/uL (1.5-8.5); NEUTROPHILS % 77.4 % (36.0-66.0); PLATELET COUNT, AUTOMATED 212 10^3/uL (150-450); RED BLOOD COUNT 3.67 10^6/uL (4.30-6.10); WHITE BLOOD COUNT 10.1 10^3/uL (4.0-10.0)
[2021-03-17 06:36] LABS: MAGNESIUM LEVEL 1.6 MG/DL (1.8-2.4)
[2021-03-17 06:42] LABS: ALBUMIN 3.4 GM/DL (3.2-5.2); ALT/SGPT 24 U/L (12-78); BILIRUBIN,TOTAL 1.7 MG/DL (0.2-1.0); BLOOD UREA NITROGEN 8 MG/DL (7-18); CALCIUM LEVEL 9.6 MG/DL (8.8-10.2); CARBON DIOXIDE LEVEL 26 MEQ/L (21-32); CHLORIDE LEVEL 106 MEQ/L (98-107); GLOMERULAR FILTRATION RATE > 60.0 (>49); GLUCOSE, FASTING 109 MG/DL (70-100); POTASSIUM SERUM 4.8 MEQ/L (3.5-5.1); SODIUM LEVEL 139 MEQ/L (136-145); TOTAL PROTEIN 7.3 GM/DL (6.4-8.2)
[2021-03-17] MEDS: MULTIVITAMINS/MINERALS THERAP 1 TAB PO SCH (08:46)
[2021-03-17] MEDS: FOLIC ACID 1 MG TAB PO SCH (08:46)
[2021-03-17] MEDS: allopurinoL 300 MG TAB PO SCH (08:46)
[2021-03-17] MEDS: NICOTINE 14 MG/24 HR TRANSDERMAL TD SCH (08:47)
[2021-03-17] MEDS: amLODIPine 5 MG TAB PO SCH (08:47)
[2021-03-17] MEDS: MAG SULF 1GM/100ML (MAG RUN) 1 GM in IV 1 EA IV SCH ×2 (08:47→09:59)
[2021-03-17] MEDS: THIAMINE 100 MG TAB PO SCH ×2 (08:49→21:42)
[2021-03-17] MEDS ORDERED: amLODIPine 5 MG TAB PO SCH (09:00)
--- NOTE | 2021-03-17 10:38 | EEG ---
ELECTROENCEPHALOGRAM DATE: 03/16/2021 DIAGNOSIS: Syncope. EEG# [id number]. REFERRING PHYSICIAN: Virgilio Ramsey MD. HISTORY: Patient is a 65-year-old who was admitted at [facility] due to episodes of seizure-like activity and scalp hematoma with history of alcoholism. This EEG was done to rule out epileptic potential. He is currently taking Lipitor, thiamine, allopurinol, folic acid, nicotine, etc. TECHNICAL DESCRIPTION: This digital EEG was recorded by 21-scalp, ear, and two EKG electrodes and was reviewed in bipolar and referential montages following reformatting in 10-20 international electrode placement system. INTERPRETATION: Patient was noted to be in mostly drowsy state during this EEG. Resting and awake background rhythm consisted of 6-7 Hz theta activity measuring 15-40 microvolts in amplitude, which was symmetric and reactive to eye opening. Attenuation of posterior dominant rhythm was seen during transition into drowsiness. Hyperventilation could not be performed. Photic stimulation remained unremarkable. Stage 2 and 3 sleep were noted and were symmetric bilaterally. EKG revealed normal sinus rhythm. No focal, lateralizing, or epileptiform abnormalities were seen. No relevant clinical activity was noted. CONCLUSION: This EEG in mostly drowsy state, stage 2 and 3 sleep is abnormal due to presence of mild generalized slowing and disorganization of background consistent with nonspecific diffuse cerebral dysfunction suggesting an encephalopathy due to multiple potential causes, including toxic, metabolic, infection, medication related, or multifocal structural brain abnormalities. Clinical correlation is recommended.
[2021-03-17] MEDS ORDERED: PROHANCE 279.3MG/ML 15ML VIAL As Ordered ONE (12:29)
--- NOTE | 2021-03-17 13:20 | REP ---
INDICATION: Altered mental status. COMPARISON: Comparison CT study of the brain March 16, 2021.. TECHNIQUE: Axial and sagittal imaging planes are utilized for T1 and T2-weighted scans. Sequences include spin-echo, fast spin echo, FLAIR, and diffusion weighted sequences. Postcontrast imaging is included. 15 mL of intravenous ProHance was administered. FINDINGS: No bony calvarial lesion is seen. Craniocervical junction and upper cervical cord are normal in appearance. There is no MR evidence of significant paranasal sinus disease. No intraorbital abnormality is seen. There is minimal generalized volume loss. Some motion artifact is seen on the circ sequences. There is no evidence of intracranial hemorrhage, mass, infarct, or midline shift. Diffusion-weighted scans show no evidence of restricted diffusion. Postcontrast images demonstrate enhancement in normal intracranial vasculature. No abnormal contrast enhancement is appreciated. IMPRESSION: Minimal generalized volume loss. Otherwise negative MRI study of the brain without and with intravenous gadolinium. <Electronically signed by Eren Waters > 03/17/21 [id number]
--- NOTE | 2021-03-17 19:48 | IPNPDOC ---
Text Note Date of Service The patient was seen on 03/17/21. NOTE Subjective: Patient was examined at bedside. Patient was alert oriented x3 today when I saw him. He reports he does not remember anything what happened yesterday and day before yesterday. Denies having any headaches, vision changes, chest pain, abdominal pain. Denies having any nausea, vomiting, diarrhea, dysuria. He does report to have right knee pain and says it is his gout which is bothering him. Reports having difficulty with weightbearing in the right leg due to his knee pain. Objective: General: Patient is alert oriented x3, sitting in chair. No apparent distress. Cardiac: S1 and S2 normal, no murmurs appreciated. Lungs: Clear to auscultation, no wheezes appreciated. Abdomen: Soft, positive bowel sounds, no tenderness on all 4 quadrants. Extremity: Mild swelling in his right knee, feels warm to touch. No pedal edema. Neurological: Patient is fully oriented to time, place, person. And does not remember anything what happened in the last [address]: 03/14/2021: Reported as:Advanced multilevel degenerative changes. No evidence for acute pathology or trauma/injury. Head CT done on 03/14/2021: Reported as:Atrophy and microvascular ischemic changes. No acute intracranial hemorrhage, infarction, or mass/mass effect. Chest x-ray done on 03/14/2021: Reported as: No acute cardiopulmonary process appreciated Vascular ultrasound done on 03/15/2021: Reported as:Less than 50% category narrowing in the right internal carotid artery by Doppler velocity criteria. Less than 50% category narrowing in the left ICA by Doppler velocity criteria. CT head without contrast done on 03/20/2021: Reported as: No acute intracranial abnormality. Brain MRI done on 03/17/2021: Reported as:Minimal generalized volume loss. Otherwise negative MRI study of the brain without and with intravenous gadolinium. EEG: Reported as:CONCLUSION: This EEG in mostly drowsy state, stage 2 and 3 sleep is abnormal due to presence of mild generalized slowing and disorg anization of background consistent with nonspecific diffuse cerebral dysfunction suggesting an encephalopathy due to multiple potential causes, including toxic, metabolic, infection, medication related, or multifocal structural brain abnormalities Assessment and plan: Assessment and plan: 65-year-old male with a past medical history of hypertension, [id number] diabetes mellitus, dyslipidemia, gout who was brought into the ED by EMS after sustaining a syncopal episode just after walking out of his work. As per the HPI the bystander did mention he had some seizure-like activity but EMS did not note any on arrival. Patient does not remember any of the events. In the ED patient was evaluated and had a CT done which showed no acute pathology. He was admitted for further evaluation and treatment. Plan: Syncopal episode: -Patient initial imaging showed no acute events. -We will continue monitoring on telemetry [patient had no acute events on telemetry overnight.] -Continue fall precautions. -Echo order was already placed Questionable seizure activity: -Patient has mild elevation in prolactin, it was not unwitnessed syncopal episode. -EEG as above. -Continue seizure precautions Questionable alcohol withdrawal: -Today as patient was alert and oriented could ask him some questions about his alcohol. -He reports to be drinking only 1 or 2 beers per day -And reports on Sunday he had about 7-8 beers. -We will continue patient on folic acid, thiamine, multivitamin. -CIWA protocol in place if needed Altered mental status: -Complete work-up for altered mental status was ordered. -Blood cultures preliminary report at 24 hours were negative no growth -Ammonia level within normal limit -ABG done was normal -Neurology was consulted for this patient and recommended getting an brain MRI -Report as above. Right knee swelling: -Likely a gout flareup patient is having. -We will start him on naproxen 500 mg twice daily. -We will get an MRI knee to rule out any septic joint[ given that patient is unable to bear weight on this joint] -If the MRI shows fluid in the joint will consult Ortho for drainage of the fluid. Electrolyte abnormalities: -Patient electrolytes were normal today -His magnesium was 1.6 and was replaced. Hypertension: -Continue home amlodipine 5 mg p.o. daily Diabetes mellitus: -We will continue insulin sliding scale. -Hypoglycemic protocol in place -Continue consistent carbohydrate diet Gout: -We will continue home allopurinol 300 mg p.o. daily Dyslipidemia: -We will continue atorvastatin 40 mg p.o. nightly Current smoker: -We will start him on nicotine patch. DVT prophylaxis: -Teds and sequentials Disposition: Pending clinical improvement. Attending Attestation: I saw and evaluated patient. I agree with the findings and plan of care as documented in the residents note. VS,Fishbone, I+O VS, Fishbone, I+O Laboratory Tests 03/17/21 05:34 Vital Signs Date Time Temp Pulse Resp B/P (MAP) Pulse Ox O2 Delivery O2 Flow Rate FiO2 03/17/21 16:00 98.5 80 18 158/74 (102) 97 Room Air I&O- Last 24 Hours up to 6 AM 03/17/21 06:00 Intake Total 2960 ml Output Total 1150 ml Balance 1810 ml Florence Landeros MD Mar 17, 2021 19:48 SHANON LEMUS MD Mar 19, 2021 06:29
[2021-03-17] MEDS: ATORVASTATIN 20 MG TAB PO SCH (21:41)
[2021-03-17] MEDS: NAPROXEN 250 MG TAB PO SCH (21:42)
[2021-03-18] MEDS: NS 1,000 ML IV SCH ×3 (02:30→12:21)
[2021-03-18 03:08] VITALS: BP 154/73
[2021-03-18 04:35] VITALS: BP 157/68
[2021-03-18 07:38] LABS: BASO % 0.3 % (0.0-1.0); EOS # 0.5 10^3/uL (0.0-0.5); EOS % 5.7 % (0.0-3.0); HEMOGLOBIN 10.6 g/dl (13.5-17.5); LYMPH # 1.2 10^3/uL (1.5-5.0); MEAN CORPUSCULAR HEMOGLOBIN 28.9 pg (27.0-33.0); MEAN CORPUSCULAR HGB CONC 33.1 g/dl (32.0-36.5); MEAN CORPUSCULAR VOLUME 87.2 fl (80.0-96.0); MONO # 1.1 10^3/uL (0.0-0.8); MONO % 12.2 % (2.0-8.0); NEUTROPHILS # 6.4 10^3/uL (1.5-8.5); NEUTROPHILS % 68.6 % (36.0-66.0); PLATELET COUNT, AUTOMATED 190 10^3/uL (150-450); RED BLOOD COUNT 3.67 10^6/uL (4.30-6.10); WHITE BLOOD COUNT 9.4 10^3/uL (4.0-10.0)
[2021-03-18 07:57] LABS: BLOOD UREA NITROGEN 11 MG/DL (7-18); CALCIUM LEVEL 8.7 MG/DL (8.8-10.2); CARBON DIOXIDE LEVEL 23 MEQ/L (21-32); CHLORIDE LEVEL 111 MEQ/L (98-107); CREATININE FOR GFR 0.72 MG/DL (0.70-1.30); GLOMERULAR FILTRATION RATE > 60.0 (>49); GLUCOSE, FASTING 116 MG/DL (70-100); POTASSIUM SERUM 4.4 MEQ/L (3.5-5.1); SODIUM LEVEL 141 MEQ/L (136-145)
[2021-03-18 08:00] VITALS: BP 148/68
[2021-03-18] MEDS: NAPROXEN 250 MG TAB PO SCH (08:15)
[2021-03-18] MEDS: allopurinoL 300 MG TAB PO SCH (08:15)
[2021-03-18] MEDS: amLODIPine 5 MG TAB PO SCH (08:15)
[2021-03-18] MEDS: THIAMINE 100 MG TAB PO SCH ×2 (08:16→22:56)
[2021-03-18] MEDS: FOLIC ACID 1 MG TAB PO SCH (08:16)
[2021-03-18] MEDS: MULTIVITAMINS/MINERALS THERAP 1 TAB PO SCH (08:16)
[2021-03-18] MEDS: NICOTINE 14 MG/24 HR TRANSDERMAL TD SCH (08:17)
[2021-03-18 10:21] LABS: MAGNESIUM LEVEL 1.6 MG/DL (1.8-2.4); URIC ACID 2.7 MG/DL (3.5-7.2)
[2021-03-18] MEDS: MAG SULF 1GM/100ML (MAG RUN) 1 GM in IV 1 EA IV SCH ×2 (11:13→12:20)
[2021-03-18 12:00] VITALS: BP 169/78
[2021-03-18] MEDS ORDERED: THIA100TA PO (12:48)
[2021-03-18] MEDS ORDERED: VITMTA PO (12:48)
[2021-03-18] MEDS ORDERED: FOLI1TAB11 PO (12:48)
[2021-03-18] MEDS ORDERED: PRED20TA PO (12:48)
[2021-03-18 14:29] VITALS: BP 164/82
--- NOTE | 2021-03-18 18:38 | IPNPDOC ---
Text Note Date of Service The patient was seen on 03/18/21. NOTE Subjective: Patient was examined at bedside. Patient was alert oriented x3. He still cannot remember what happened on the day of syncope and after that. He remembers what happened yesterday. He reports still feeling tired and says he feels like he is in a twilight zone. He reports pain in the right knee has decreased after the medication he got yesterday. Able to bear weight and move his leg. Objective: General: Patient is alert oriented x3, sitting in chair. No apparent distress. Cardiac: S1 and S2 normal, no murmurs appreciated. Lungs: Clear to auscultation, no wheezes appreciated. Abdomen: Soft, positive bowel sounds, no tenderness on all 4 quadrants. Extremity: The swelling in the right knee has reduced since yesterday, feels warm to touch but no redness. Neurological: Patient is fully oriented to time, place, person. And does not remember anything what happened in the last [address]: 03/14/2021: Reported as:Advanced multilevel degenerative changes. No evidence for acute pathology or trauma/injury. Head CT done on 03/14/2021: Reported as:Atrophy and microvascular ischemic changes. No acute intracranial hemorrhage, infarction, or mass/mass effect. Chest x-ray done on 03/14/2021: Reported as: No acute cardiopulmonary process appreciated Vascular ultrasound done on 03/15/2021: Reported as:Less than 50% category narrowing in the right internal carotid artery by Doppler velocity criteria. Less than 50% category narrowing in the left ICA by Doppler velocity criteria. CT head without contrast done on 03/20/2021: Reported as: No acute intracranial abnormality. Brain MRI done on 03/17/2021: Reported as:Minimal generalized volume loss. Otherwise negative MRI study of the brain without and with intravenous gadolinium. Echocardiogram done on 03/15/2020: Reported as:1. Study is of acceptable technical quality, underlying sinus rhythm. 2. Normal LV size with mild LVH and preserved LV systolic function. Likely normal diastolic function. 3. No hemodynamically significant valvular disease. 4. Normal central venous pressure. 5. Unable to estimate pulmonary artery pressure. 6. No findings to explain syncopal event. EEG: Reported as:CONCLUSION: This EEG in mostly drowsy state, stage 2 and 3 sleep is abnormal due to presence of mild generalized slowing and disorganization of background consistent with nonspecific diffuse cerebral dysfunction suggesting an encephalopathy due to multiple potential causes, including toxic, metabolic, infection, medication related, or multifocal structural brain abnormalities Assessment and plan: Assessment and plan: 65-year-old male with a past medical history of hypertension, [id number] diabetes mellitus, dyslipidemia, gout who was brought into the ED by EMS after sustaining a syncopal episode just after walking out of his work. As per the HPI the bystander did mention he had some seizure-like activity but EMS did not note any on arrival. Patient does not remember any of the events. In the ED patient was evaluated and had a CT done which showed no acute pathology. He was admitted for further evaluation and treatment. Plan: Syncopal episode: All his imaging shows no acute changes. -Neurology was consulted for his syncopal and altered mental status. As per neurology they feel the patient's confusion might be related to the concussion he got during the syncopal episode. And will have gradual improvement as time passes. -Continue fall precautions. Questionable seizure activity: -Patient has mild elevation in prolactin, it was not unwitnessed syncopal episode. -EEG as above. -Continue seizure precautions. Questionable alcohol withdrawal: -He reports to be drinking only 1 or 2 beers per day -And reports on Sunday he had about 7-8 beers. -We will continue patient on folic acid, thiamine, multivitamin. -CIWA protocol in place if needed Altered mental status: -Complete work-up for altered mental status was ordered. -Blood cultures preliminary report at 24 hours were negative no growth -Ammonia level within normal limit -ABG done was normal -Neurology was consulted for this patient and recommended getting an brain MRI, reported as above. Neurology suspected to be because of the confusion he had during the syncopal episode. Right knee swelling: -Likely a gout flare patient is having. - Patient did get 2 doses of naproxen [yesterday night and today morning] -We will do patient prednisone 40 mg daily from tomorrow for 3 days. -We will get an MRI knee to rule out any septic joint[ given that patient is unable to bear weight on this joint] -If the MRI shows fluid in the joint will consult Ortho for drainage of the fluid. Electrolyte abnormalities: -Patient electrolytes were normal today except the magnesium -His magnesium was 1.6 and was replaced with Mg run X2 Hypertension: -Continue home amlodipine 5 mg p.o. daily Diabetes mellitus: -We will continue insulin sliding scale. -Hypoglycemic protocol in place -Continue consistent carbohydrate diet Gout: -We will continue home allopurinol 300 mg p.o. daily Dyslipidemia: -We will continue atorvastatin 40 mg p.o. nightly Current smoker: -We will start him on nicotine patch. DVT prophylaxis: -Teds and sequentials Disposition: As from the neurology standpoint they cleared the patient to go home. Based on PT evaluation tomorrow he will be discharged Attending Attestation: I saw and evaluated patient. I agree with the findings and plan of care as documented in the residents note. VS,Fishbone, I+O VS, Fishbone, I+O Laboratory Tests 03/18/21 07:22 Vital Signs Date Time Temp Pulse Resp B/P (MAP) Pulse Ox O2 Delivery O2 Flow Rate FiO2 03/18/21 14:29 164/82 (109) 03/18/21 12:00 97.5 63 16 97 Room Air I&O- Last 24 Hours up to 6 AM 03/18/21 06:00 Intake Total 4080 ml Output Total 1675 ml Balance 2405 ml Florence Landeros MD Mar 18, 2021 18:38 SHANON LEMUS MD Mar 19, 2021 06:33
[2021-03-18 20:00] VITALS: BP 157/74
[2021-03-18] MEDS: ATORVASTATIN 20 MG TAB PO SCH (21:00)
[2021-03-19] VITALS: BP 156/74
[2021-03-19] MEDS: NS 1,000 ML IV SCH ×3 (00:37→23:03)
[2021-03-19 08:00] VITALS: BP 152/74
[2021-03-19] MEDS: allopurinoL 300 MG TAB PO SCH (08:08)
[2021-03-19] MEDS: FOLIC ACID 1 MG TAB PO SCH (08:08)
[2021-03-19] MEDS: amLODIPine 5 MG TAB PO SCH (08:08)
[2021-03-19] MEDS: predniSONE 20 MG TAB PO SCH (08:08)
[2021-03-19] MEDS: MULTIVITAMINS/MINERALS THERAP 1 TAB PO SCH (08:08)
[2021-03-19] MEDS: NICOTINE 14 MG/24 HR TRANSDERMAL TD SCH (08:09)
[2021-03-19 08:30] VITALS: BP 164/78
[2021-03-19 09:52] LABS: BLOOD UREA NITROGEN 11 MG/DL (7-18); CALCIUM LEVEL 8.7 MG/DL (8.8-10.2); CARBON DIOXIDE LEVEL 24 MEQ/L (21-32); CHLORIDE LEVEL 109 MEQ/L (98-107); CREATININE FOR GFR 0.69 MG/DL (0.70-1.30); GLOMERULAR FILTRATION RATE > 60.0 (>49); GLUCOSE, FASTING 126 MG/DL (70-100); MAGNESIUM LEVEL 1.5 MG/DL (1.8-2.4); POTASSIUM SERUM 4.3 MEQ/L (3.5-5.1); SODIUM LEVEL 143 MEQ/L (136-145)
[2021-03-19 10:00] VITALS: BP 155/78
[2021-03-19] MEDS: MAG SULF 1GM/100ML (MAG RUN) 1 GM in IV 1 EA IV SCH ×2 (12:38→14:26)
[2021-03-19 14:00] VITALS: BP 149/78
--- NOTE | 2021-03-19 16:24 | CR ---
CONSULTATION DATE: 03/17/2021 REFERRING PHYSICIAN: Dr. Wale Nielson REASON FOR CONSULTATION: Loss of consciousness. HISTORY OF PRESENT ILLNESS: Tutu Benavides is a 65-year-old man who works at [employer]. He finished his work around 3 p.m. He left work, walked out the back door, and does not remember anything after that. He woke up in the ambulance. Per emergency medical service, a bystander thought that he had a seizure. Emergency medical services (EMS) did not see any seizure activity. Patient was alert on arrival and oriented. He hit the back of his head. He had a hematoma of scalp. There was concern of excessive alcohol intake, and patient was put on Serax. Patient has off and on back pain. He denies any headaches, neck pain, dysphagia, dysarthria, diplopia, urinary incontinence, or seizures in past. Patient has taken a few days to improve his mentation. MEDICAL HISTORY: 1. Type 2 diabetes. 2. Hypertension. 3. Dyslipidemia. 4. Gout. ALLERGIES: None. SOCIAL HISTORY: He lives with his significant other. He occasionally drinks beer. He smokes one pack per day. He denies illicit drugs. ALLERGIES: None. HOME MEDICATIONS: - amlodipine 5 mg by mouth daily - hydrochlorothiazide 12.5 mg by mouth daily - metoprolol extended release 25 mg by mouth daily - allopurinol 300 mg by mouth daily - atorvastatin 40 mg by mouth daily - metformin 500 mg by mouth twice a day FAMILY HISTORY: Unremarkable and noncontributory. PHYSICAL EXAMINATION: Temperature 98.5, pulse 80, respiratory rate 18, blood pressure 158/74, 97% saturation on room air. HEART: Regular rate and rhythm. LUNGS: Clear to auscultation. ABDOMEN: Soft, nontender, nondistended. No pedal edema. No musculoskeletal abnormalities. No rash. No signs of meningeal irritation. Patient is awake, alert, oriented to place, person, and team. Normal speech, comprehension, and repetition. Extraocular muscles are intact. No facial weakness. Tongue and uvula are midline. Strength 5/5 in all four extremities. Deep tendon reflexes 2+ throughout. Normal sensation. Gait is minimally unsteady. DIAGNOSTIC STUDIES: MRI scan of brain showed mild atrophy. WBC were 10.1. Vitamin B12 was 486. CK was 723. Prolactin level was 19.8. EEG showed mild slowing and encephalopathy. There were no epileptiform discharges. His COVID, influenza, and RSV testing were unremarkable. His liver functions were normal. Ammonia level was 12. ASSESSMENT: 1. Episode of loss of consciousness with head injury. 2. Concern for vasovagal syncope, hypotensive syncope, and seizure. 3. Mild concussion as a result of his fall and head injury. PLAN: 1. [facility] rules and regulations regarding driving were explained. 2. Physical and occupational therapy. 3. Taper off Serax, and once medically stable patient can be discharged home.
[2021-03-19] MEDS: ATORVASTATIN 20 MG TAB PO SCH (20:05)
[2021-03-19 22:00] VITALS: BP 146/70
[2021-03-20 05:27] VITALS: BP 166/91
[2021-03-20] MEDS: predniSONE 20 MG TAB PO SCH (08:49)
[2021-03-20] MEDS: amLODIPine 5 MG TAB PO SCH (08:49)
[2021-03-20] MEDS: MULTIVITAMINS/MINERALS THERAP 1 TAB PO SCH (08:50)
[2021-03-20] MEDS: allopurinoL 300 MG TAB PO SCH (08:50)
[2021-03-20] MEDS: NICOTINE 14 MG/24 HR TRANSDERMAL TD SCH ×2 (08:50→08:51)
[2021-03-20] MEDS: NS 1,000 ML IV SCH ×2 (08:50→19:10)
[2021-03-20] MEDS: FOLIC ACID 1 MG TAB PO SCH (08:50)
[2021-03-20 14:00] VITALS: BP 141/71
[2021-03-20] MEDS: ATORVASTATIN 20 MG TAB PO SCH (20:11)
[2021-03-21 06:00] VITALS: BP 142/72
[2021-03-21] MEDS: FOLIC ACID 1 MG TAB PO SCH (08:55)
[2021-03-21] MEDS: NICOTINE 14 MG/24 HR TRANSDERMAL TD SCH ×2 (08:55→09:00)
[2021-03-21] MEDS: MULTIVITAMINS/MINERALS THERAP 1 TAB PO SCH (08:55)
[2021-03-21 08:57] VITALS: BP 159/72
[2021-03-21] MEDS: predniSONE 20 MG TAB PO SCH (08:57)
[2021-03-21] MEDS: allopurinoL 300 MG TAB PO SCH (08:57)
[2021-03-21] MEDS: amLODIPine 5 MG TAB PO SCH (08:57)
[2021-03-21] MEDS ORDERED: PRED10TA2 PO (10:12)
--- NOTE | 2021-04-10 19:16 | DS.PDOC ---
Discharge Summary General Date of Admission Mar 16, 2021 at 10:03 Date of Discharge 03/21/2021 Discharge Summary PROCEDURES PERFORMED DURING STAY: [None]. DISCHARGE DIAGNOSES: Syncopal episode Questionable seizure activity: Questionable alcohol withdrawal: Altered mental status Right knee swelling: Electrolyte abnormalities: Hypertension: Diabetes mellitus: Gout: Dyslipidemia: Nicotine abuse: COMPLICATIONS/CHIEF COMPLAINT: Closed Head Injury, Syncope. HOSPITAL COURSE: 65-year-old male with a past medical history of hypertension, non-insulin- dependent diabetes mellitus, dyslipidemia, gout who was brought into the ED by EMS for a witnessed syncopal episode, with possible seizure like activity. Patient unaware and does not recall any details of this event. In the ED patient was evaluated and had a CT done which showed no acute pathology. He was admitted for further evaluation and treatment. Hospital stay complicated with confusion. Syncopal episode: All his imaging shows no acute changes. -Neurology was consulted for his syncopal and altered mental status. As per neurology they feel the patient's confusion might be related to the concussion he got during the syncopal episode. And will have gradual improvement as time passes. -Continue fall precautions. Questionable seizure activity: -Patient has mild elevation in prolactin, it was not unwitnessed syncopal episode. -EEG as above. -Continue seizure precautions. Questionable alcohol withdrawal: -He reports to be drinking only 1 or 2 beers per day -And reports on Sunday he had about 7-8 beers. -We will continue patient on folic acid, thiamine, multivitamin. -CIWA protocol in place if needed Altered mental status: -Complete work-up for altered mental status was ordered. -Blood cultures preliminary report at 24 hours were negative no growth -Ammonia level within normal limit -ABG done was normal -Neurology was consulted for this patient and recommended getting an brain MRI, reported as above. Neurology suspected to be because of the confusion he had during the syncopal episode. Right knee swelling: -Likely a gout flare patient is having. - Patient did get 2 doses of naproxen [yesterday night and today morning] -If the MRI shows fluid in the joint will consult Ortho for drainage of the fluid. Electrolyte abnormalities: -repleted Hypertension: -Continue home amlodipine 5 mg p.o. daily Diabetes mellitus: -We will continue insulin sliding scale. -Hypoglycemic protocol in place -Continue consistent carbohydrate diet Gout: -responded well to steroid therapy; allopurinol 300 mg p.o. daily Dyslipidemia: -We will continue atorvastatin 40 mg p.o. nightly Nicotine abuse: -continue with nicotine replacement therapy DISCHARGE MEDICATIONS: Please see below. ALLERGIES: Please see below. PHYSICAL EXAMINATION ON DISCHARGE: VITAL SIGNS: Please see below. General: Patient is alert oriented x3, sitting in chair. No apparent distress. HEENT: NC Cardiac: S1 and S2 normal, no murmurs appreciated. Lungs: Clear to auscultation, no wheezes appreciated. Abdomen: Soft, positive bowel sounds, no tenderness on all 4 quadrants. Extremity: no edema, RLE knee swelling much improved, minimally warm to touch Psych: AAOx3 with prompting Neurological: no gross focal deficits LABORATORY DATA: Please see below. ACTIVITY: [As tolerated]. DISPOSITION: Home Health Service. DISCHARGE INSTRUCTIONS: 1. PCP in 3-5 days 2. Neurology as directed DISCHARGE CONDITION: [Stable]. TIME SPENT ON DISCHARGE: 35 minutes. Discharge Medications Scheduled Allopurinol (Zyloprim) 300 Mg Tablet, 300 MG PO DAILY, (Reported) Amlodipine Besylate (Amlodipine Besylate) 5 Mg Tablet, 5 MG PO DAILY, (Reported) Atorvastatin Calcium (Atorvastatin Calcium) 40 Mg Tablet, 40 MG PO QHS, (Reported) Folic Acid (Folic Acid) 1 Mg Tablet, 1 MG PO DAILY Hydrochlorothiazide (Hydrochlorothiazide) 12.5 Mg Capsule, 12.5 MG PO DAILY, (Reported) Metformin HCl (Metformin HCl) 500 Mg Tablet, 500 MG PO BID, (Reported) Metoprolol Succinate (Metoprolol Succinate) 25 Mg Tab.er.24h, 25 MG PO DAILY, (Reported) Multivitamins (Thera M Plus Tablet) 1 Each Tablet, 1 TAB PO DAILY Prednisone (Prednisone) 10 Mg Tablet, 10 MG PO TAPER Take 3 tabs daily x 1 days, then 2 tabs daily x 1 days, then 1 tabs daily x 1 days, and stop Thiamine Hcl (Vitamin B-1) 100 Mg Tablet, 100 MG PO BID Allergies Coded Allergies: No Known Allergies (Verified Allergy, Unknown, 03/14/21) SHANON LEMUS MD Apr 10, 2021 19:16
== END 2021-03-21 15:05 | disposition home health service (06) | DRG 204 ==
LOC: EDBD 16:36 → M ED 16:36 → M ED INP 16:37 → M PCU 22:38 → OBSVTOIN 03-16 10:03 → M MS5PR 03-19 08:30
PROVIDERS: ADMIT Family Medicine; ATTEND Internal Medicine
DX: R55 Syncope and collapse (principal); R56.9 Unspecified convulsions; M62.82 Rhabdomyolysis; E83.42 Hypomagnesemia; S06.0X9A Concussion with loss of consciousness of unspecified duration, initial encounter; E11.9 Type 2 diabetes mellitus without complications; I10 Essential (primary) hypertension; E87.6 Hypokalemia; F10.239 Alcohol dependence with withdrawal, unspecified; M10.9 Gout, unspecified; E78.00 Pure hypercholesterolemia, unspecified; F17.200 Nicotine dependence, unspecified, uncomplicated; Z79.899 Other long term (current) drug therapy; E78.5 Hyperlipidemia, unspecified; W18.30XA Fall on same level, unspecified, initial encounter; Y92.009 Unspecified place in unspecified non-institutional (private) residence as the place of occurrence of the external cause

== ENCOUNTER → 2021-06-17 | Outpatient (REF) | payer BC ==
[~2021-06-17] MED LIST: ALLO300T2 PO; AMLO1TAB24 PO; AMLO2.5T3 PO; ATOR40TA75 PO; CEPH500C PO; COMMENTS; FOLI1TAB11 PO; HYDR12CA PO; METF500T13 PO; METO1TAB32 PO; PRED10TA2 PO; PRED20TA PO; THIA100TA PO; VALS160T3 PO; VALS320T3 PO; VITMTA PO; ZYLO300T6 PO
[2021-06-17 12:43] LABS: BASO # 0.1 10^3/uL (0.0-0.2); BASO % 0.4 % (0.0-1.0); EOS # 0.5 10^3/uL (0.0-0.5); EOS % 4.7 % (0.0-3.0); HEMATOCRIT 33.6 % (42.0-52.0); HEMOGLOBIN 10.9 g/dl (13.5-17.5); LYMPH # 2.1 10^3/uL (1.5-5.0); LYMPH % 18.6 % (24.0-44.0); MEAN CORPUSCULAR HEMOGLOBIN 29.1 pg (27.0-33.0); MEAN CORPUSCULAR HGB CONC 32.4 g/dl (32.0-36.5); MEAN CORPUSCULAR VOLUME 89.6 fl (80.0-96.0); MONO # 0.8 10^3/uL (0.0-0.8); MONO % 7.4 % (2.0-8.0); NEUTROPHILS # 7.7 10^3/uL (1.5-8.5); NEUTROPHILS % 68.5 % (36.0-66.0); PLATELET COUNT, AUTOMATED 264 10^3/uL (150-450); RED BLOOD COUNT 3.75 10^6/uL (4.30-6.10); WHITE BLOOD COUNT 11.2 10^3/uL (4.0-10.0)
== END ==
LOC: M LAB REF 12:30
PROVIDERS: ATTEND Physician Assistant
DX: M19.90 Unspecified osteoarthritis, unspecified site (principal)

== ENCOUNTER 2021-06-19 10:20 | Inpatient (IN) | payer BC ==
[~2021-06-19 10:20] MED LIST changes: -ALLO300T2 PO; -AMLO2.5T3 PO; -CEPH500C PO; -COMMENTS; -VALS320T3 PO
[2021-06-19] MEDS ORDERED: DIGOXIN INJ 0.5 MG/2 ML AMP (J1160) IV ONE ×2 (10:50→12:10)
[2021-06-19] MEDS ORDERED: NS 1,000 ML IV ONE (10:55)
[2021-06-19 11:01] LABS: BASO # 0.1 10^3/uL (0.0-0.2); BASO % 0.4 % (0.0-1.0); EOS # 0.4 10^3/uL (0.0-0.5); EOS % 2.8 % (0.0-3.0); HEMATOCRIT 34.1 % (42.0-52.0); HEMOGLOBIN 11.2 g/dl (13.5-17.5); LYMPH # 2.8 10^3/uL (1.5-5.0); MEAN CORPUSCULAR HEMOGLOBIN 29.2 pg (27.0-33.0); MEAN CORPUSCULAR HGB CONC 32.8 g/dl (32.0-36.5); MEAN CORPUSCULAR VOLUME 88.8 fl (80.0-96.0); MONO # 0.9 10^3/uL (0.0-0.8); MONO % 6.1 % (2.0-8.0); NEUTROPHILS # 9.8 10^3/uL (1.5-8.5); NEUTROPHILS % 69.7 % (36.0-66.0); PLATELET COUNT, AUTOMATED 308 10^3/uL (150-450); RED BLOOD COUNT 3.84 10^6/uL (4.30-6.10); WHITE BLOOD COUNT 14.1 10^3/uL (4.0-10.0)
--- NOTE | 2021-06-19 11:03 | REP ---
INDICATION: seizure COMPARISON: 03/14/2021 TECHNIQUE: Portable AP view of the chest FINDINGS: The mediastinum and cardiac silhouette are stable and within normal limits for portable technique. The lung hernandez are clear without acute consolidation, effusion, or pneumothorax. Skeletal structures are intact. IMPRESSION: No acute cardiopulmonary process appreciated. <Electronically signed by Juan Owens > 06/19/21 [id number]
[2021-06-19 12:02] LABS: BLOOD UREA NITROGEN 17 MG/DL (7-18); CALCIUM LEVEL 7.9 MG/DL (8.8-10.2); CARBON DIOXIDE LEVEL 20 MEQ/L (21-32); CHLORIDE LEVEL 102 MEQ/L (98-107); CK-MB VALUE MASS 2.4 NG/ML (<3.6); CPK CREATINE PHOSPHOKINASE 161 U/L (39-308); CREATININE FOR GFR 1.66 MG/DL (0.70-1.30); ETHYL ALCOHOL (ETHANOL) 0.003 % (0.000-0.010); GLOMERULAR FILTRATION RATE 44.5 (>49); GLUCOSE, FASTING 152 MG/DL (70-100); MAGNESIUM LEVEL 0.5 MG/DL (1.8-2.4); MB/CK RELATIVE INDEX 1.49 (< OR =4); POTASSIUM SERUM 3.1 MEQ/L (3.5-5.1); SODIUM LEVEL 138 MEQ/L (136-145); TROPONIN I < 0.02 NG/ML (< 0.10)
[2021-06-19] MEDS ORDERED: MAG SULF 1GM/100ML (MAG RUN) 1 GM in IV 1 EA IV ONE ×3 (12:05→19:30)
[2021-06-19] MEDS ORDERED: KCL 10MEQ/100ML SWI (KRUN) 10 MEQ in IV 1 EA IV ONE (12:10)
[2021-06-19 12:24] LABS: RSV AMPLIFICATION NEGATIVE (NEGATIVE)
[2021-06-19] MEDS ORDERED: OXAZEPAM 10 MG CAP PO SCH (12:55)
[2021-06-19] MEDS ORDERED: ACETAMINOPHEN TAB 650MG DOSE (2X325MG) PO PRN (13:15)
[2021-06-19] MEDS ORDERED: GLUCAGON INJ 1MG VIAL SC PRN (13:15)
[2021-06-19] MEDS ORDERED: GLUCOSE 4GM CHEW TABLET PO PRN (13:15)
[2021-06-19] MEDS ORDERED: MAALOX 30 ML SUSP *UDC PO PRN (13:15)
[2021-06-19] MEDS ORDERED: DEXTROSE 50% 50 ML SYRINGE IV PRN (13:15)
[2021-06-19] MEDS ORDERED: MOM 30ML SUSPENSION UDC PO PRN (13:15)
[2021-06-19] MEDS ORDERED: NS 2,400 ML IV ONE (13:15)
[2021-06-19] MEDS: FOLIC ACID 1 MG TAB PO SCH (13:17)
[2021-06-19] MEDS: THIAMINE 100 MG TAB PO SCH (13:17)
[2021-06-19] MEDS: MULTIVITAMINS/MINERALS THERAP 1 TAB PO SCH (13:18)
[2021-06-19] MEDS ORDERED: ALLO300T2 PO (13:29)
[2021-06-19] MEDS ORDERED: VALS320T3 PO (13:29)
[2021-06-19] MEDS ORDERED: AMLO2.5T3 PO (13:29)
[2021-06-19] MEDS ORDERED: CEPH500C PO (13:29)
[2021-06-19] MEDS ORDERED: COMMENTS (13:32)
--- NOTE | 2021-06-19 13:34 | REP ---
INDICATION: Seziure COMPARISON: 03/16/2021 TECHNIQUE: Axial noncontrast images from the skull base to the thoracic inlet with coronal reformations. This CT examination was performed using the following dose reduction techniques: Automated exposure control, adjustment of mA and/or kv according to the patient's size, and use of iterative reconstruction technique. FINDINGS: Age-related changes are appreciated. The ventricles and sulci are symmetric. Rossi-white differentiation is maintained. There is no evidence for acute intracranial hemorrhage, mass/mass effect, pathology or infarction. No extra-axial fluid collection. Calvarium is intact. Paranasal sinuses and mastoid air cells are clear. Very small scalp contusion at the vertex. IMPRESSION: Age-related changes. No acute intracranial hemorrhage, infarction, or mass/mass effect. <Electronically signed by Juan Oewns > 06/19/21 2037
[2021-06-19] MEDS ORDERED: HOME MED LIST COMPLETE! XX SCH (13:35)
--- NOTE | 2021-06-19 13:40 | HPEPDOC ---
[facility] Medical History & Physical Date of Admission Jun 19, 2021 Date of Service: Jun 19, 2021 History and Physical Chief complaint: Who was brought into the ER after he was found unresponsive History of present illness: Patient is a 65-year-old male with a PMHx of HTN, DLP, NIDDM2, Questionable prior seizure, Nicotine dependence, Gout who presented to the emergency room brought in by ambulance after he was found unresponsive. After discussion with the ER provider, patient was unresponsive and EMS was summoned. Patient was found to be combative and was given Versed. He was also noted to have atrial fibrillation and was given Cardizem IV. Upon arrival to emergency room, patient was noted to be hypotensive and tachycardic. Patient was given IV fluid resuscitation and digoxin. Hospital services called for further evaluation and treatment. Patient was seen and examined at the bedside. Patient appears to be oriented to person, place and time. Reports that the only thing he remembers is waking up in the emergency room. Patient notes that he has not experience any tongue biting, loss of control of his bowel or bladder. Currently he denies any headache, chest pain, shortness breath, cough, palpitations, nausea, vomiting, abdominal pain, constipation, diarrhea, or urinary discomfort. He is unaware of any recent fevers or chills. Reports that his appetite has been fairly normal and his weight has been relatively consistent. 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 [employer] Review of Systems: 10 point review of systems complete, all negative otherwise stated in HPI Physical exam: - Vitals: BP [114/56], HR [140], RR [18], Sat [99%RA], Temp [97.1F] - General: Lying in bed, Speaking in full sentences, AAOx3 - HEENT: NC, AT, PERRLA - CVS: RRR, +S1S2, - Murmurs / rubs / gallops - Lungs: Fair air entry bilaterally, No appreciable wheezing / rales / rhonchi - Abdomen: Soft, Non-distended, Non-tender - Extremities: No lower extremity edema, No calf tenderness - Neuro: 5/5 strength at upper and lower extremities bilaterally; CN 2-12 grossly intact - Skin: No visible rashes Labs: See below Imaging: CXR 06/19: No acute cardiopulmonary process appreciated. EKG: See below Assessment and Plan: Syncope / Found down - possibly 2/2 seizure - possibly 2/2 withdrawal - Presented to ER brought in by EMS after he was found down; sees Versed in the field after he was combative - Currently patient is oriented to person, place and time - Physical does not reveal any focal deficits - Patient has had a prior admission 03/2021 with similar presentation - Will get CT head stat / Prolactin - Discussed with Neurology; will start Keppra 750 BID Suspected alcohol withdrawal - Patient reports that he only drinks one beer a week - Ethanol level negative currently - Will start Thiamine / Folate / MVI - Will start Serax Atrial fibrillation - Patient was found to have heart rates of greater than 140 - Denies any chest pain, shortness breath or palpitations - EKG reviewed - Troponin negative; will continue trend - s/p Digoxin in the ER and Diltiazem on route - Will c/w telemetry / will get ECHO stat - Will start Metoprolol tartrate q6h - Advised patient of risk of stroke given atrial fibrillation; discussed risks and benefits of anticoagulation therapy excepts risks and will start anticoagulation - Will start Heparin drip (once CT head results) ARELY - likely 2/2 pre-renal etiology - Will check urine electrolyte / renal US - Will avoid nephrotoxic medications - Will start IV fluid hydration Electrolyte abnormalities - Hypokalemia / Hypomagnesemia - Will supplement via IV and PO routes - Will repeat labs HTN - Hypotensive on arrival - Will hold Amlodipine / Valsartan / HCTZ DLP - c/w Atorvastatin NIDDM2 - Will start ISS Questionable prior seizure - Prior admission 03/2021 Nicotine dependence - Advised smoking cessation - Will start Nicotine patch Gout - c/w Allopurinol DVT prophylaxis - Will start Heparin drip (After CT head results) Disposition: - Anticipate 2 midnight stay - Awaiting clinical improvement Vital Signs Vital Signs Date Time Temp Pulse Resp B/P (MAP) Pulse Ox O2 Delivery O2 Flow Rate FiO2 06/19/21 12:28 140 06/19/21 11:40 100/56 (71) 06/19/21 11:35 99 06/19/21 10:48 97.1 Laboratory Data Labs 24H Laboratory Tests 2 06/19/21 10:53: Immature Granulocyte % (Auto) 1.0, Neutrophils (%) (Auto) 69.7H, Lymphocytes (%) (Auto) 20.0L, Monocytes (%) (Auto) 6.1, Eosinophils (%) (Auto) 2.8, Basophils (%) (Auto) 0.4, Neutrophils # (Auto) 9.8H, Lymphocytes # (Auto) 2.8, Monocytes # (Auto) 0.9H, Eosinophils # (Auto) 0.4, Basophils # (Auto) 0.1, Nucleated Red Blood Cells % (auto) 0.0, Anion Gap 16, Glomerular Filtration Rate 44.5L, Jewel cium Level 7.9L, Magnesium Level 0.5*L, Total Creatine Kinase 161, Creatine Kinase MB 2.4, Creatine Kinase MB Relative Index 1.49, Troponin I < 0.02, Thyroid Stimulating Hormone (TSH) 3.030, Ethyl Alcohol Level 0.003 06/19/21 11:34: Coronavirus (COVID-19)(PCR) NEGATIVE, Influenza Type A (RT-PCR) NEGATIVE, Influenza Type B (RT-PCR) NEGATIVE, Respiratory Syncytial Virus (PCR) NEGATIVE CBC/BMP Laboratory Tests 06/19/21 10:53 Home Medications Scheduled Amlodipine Besylate (Amlodipine Besylate) 2.5 Mg Tablet, 2.5 MG PO DAILY Atorvastatin Calcium (Atorvastatin Calcium) 40 Mg Tablet, 40 MG PO QHS Cephalexin (Cephalexin) 500 Mg Capsule, 1,000 MG PO BID Metformin HCl (Metformin HCl) 500 Mg Tablet, 500 MG PO BID Metoprolol Succinate (Metoprolol Succinate) 25 Mg Tab.er.24h, 25 MG PO DAILY Valsartan/Hydrochlorothiazide (Valsartan-Hctz 320-25 mg Tab) 1 Each Tablet, 1 TAB PO DAILY allopurinoL (allopurinoL) 300 Mg Tablet, 300 MG PO DAILY Miscellaneous Medications [Comments] MED LIST MADE WITH EXTRNAL MED HISTORY Allergies Coded Allergies: No Known Allergies (Verified Allergy, Unknown, 03/14/21) GOYO DE SOUZA MD Jun 19, 2021 13:40
[2021-06-19] MEDS: NS 1,000 ML IV SCH ×2 (13:53→23:15)
[2021-06-19] MEDS: MAG SULF 1GM/100ML (MAG RUN) 1 GM in IV 1 EA IV SCH ×3 (14:00→18:28)
[2021-06-19] MEDS ORDERED: POTASSIUM CHLORIDE 10MEQ SR TABLET PO ONE ×2 (14:00→19:30)
--- NOTE | 2021-06-19 14:10 | REP ---
INDICATION: ARELY COMPARISON: None TECHNIQUE: Real time zhou scale ultrasound examination using curved array transducer. FINDINGS: Bilateral kidneys are normal in contour, size, echogenicity, and reniform shape with increased central sinus fat suggesting age-related medical renal disease. There is no hydronephrosis, nephrolithiasis, cystic or renal mass lesion. Right kidney measures 12.4 x 5.2 x 5.9 cm. Left kidney measures 12.3 x 4.4 x 5.1 cm with small amount of perinephric fluid. Heterogeneous enlarged prostate gland measuring 5.2 x 4.4 x 6.0 cm with mass effect on the base of the bladder noted. IMPRESSION: 1. Chronic medical renal disease. No hydronephrosis. 2. Small amount of left perinephric fluid of uncertain etiology. Correlation with urinalysis to exclude pyelonephritis may be warranted. 3. Heterogeneous enlarged prostate gland with mass effect on the base of the bladder. <Electronically signed by Juan Owens > 06/19/21 1405
[2021-06-19 14:49] LABS: CREATININE,RANDOM URINE 29.1 MG/DL
[2021-06-19] MEDS ORDERED: levETIRAcetam INJection 750 MG in D5W 100 ML IV SCH (15:00)
[2021-06-19] MEDS: OXAZEPAM 10 MG CAP PO SCH ×2 (15:35→21:17)
[2021-06-19 16:15] VITALS: BP 162/84
[2021-06-19] MEDS: HumaLOG INSULIN (NovoLOG) PER UNIT SC SCH ×2 (17:30→20:13)
[2021-06-19 17:59] LABS: INR 1.1; PROTHROMBIN TIME 14.6 SECONDS (12.7-14.5)
[2021-06-19 18:00] LABS: PARTIAL THROMBOPLASTIN TIME 28.9 SECONDS (25.9-37.0)
[2021-06-19] MEDS ORDERED: METOPROLOL TART 12.5 MG PER 1/2 TAB PO SCH (18:00)
[2021-06-19 18:11] LABS: BLOOD UREA NITROGEN 13 MG/DL (7-18); CALCIUM LEVEL 7.5 MG/DL (8.8-10.2); CARBON DIOXIDE LEVEL 25 MEQ/L (21-32); CHLORIDE LEVEL 111 MEQ/L (98-107); CREATININE FOR GFR 1.11 MG/DL (0.70-1.30); GLOMERULAR FILTRATION RATE > 60.0 (>49); GLUCOSE, FASTING 109 MG/DL (70-100); MAGNESIUM LEVEL 1.7 MG/DL (1.8-2.4); SODIUM LEVEL 144 MEQ/L (136-145)
[2021-06-19] MEDS: HEPARIN DRIP 25,000 UNITS in IV 1 EA IV SCH (18:24)
--- NOTE | 2021-06-19 19:16 | ECGEPIP ---
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
[2021-06-19 20:00] VITALS: BP 134/60
[2021-06-19] MEDS: ATORVASTATIN 20 MG TAB PO SCH (20:07)
[2021-06-19] MEDS: METOPROLOL SUCC (TopROL XL) 50MG **XL** TAB PO SCH (20:08)
[2021-06-19] MEDS: DOCUSATE SODIUM 100MG CAPSULE PO SCH (20:09)
[2021-06-20] VITALS (9 sets, daily range): BP systolic 109–139; BP diastolic 57–68
[2021-06-20] MEDS: HEPARIN SOD (PORCINE) 5000UNITS/ML 1ML VIAL/SYRINGE IV PRN (00:37)
[2021-06-20] MEDS: levETIRAcetam INJection 750 MG in D5W 100 ML IV SCH ×2 (03:07→17:08)
[2021-06-20] MEDS: NS 1,000 ML IV SCH ×2 (04:52→14:13)
[2021-06-20] MEDS: OXAZEPAM 10 MG CAP PO SCH ×3 (05:19→21:47)
[2021-06-20 07:03] LABS: APPEARANCE, URINE CLOUDY (CLEAR); BACTERIA, URINE AUTO NEGATIVE (NEGATIVE); BILIRUBIN, URINE AUTO NEGATIVE (NEGATIVE); BLOOD, URINE BLOOD 3+ (NEGATIVE); COLOR, URINE YELLOW (YELLOW); GLUCOSE, URINE (UA) AUTO NEGATIVE (NEGATIVE); KETONE, URINE AUTO NEGATIVE (NEGATIVE); LEUKOCYTE ESTERASE, URINE AUTO TRACE (NEGATIVE); NITRITE, URINE AUTO NEGATIVE (NEGATIVE); PROTEIN, URINE AUTO 2+ mg/dL (NEGATIVE); RBC, URINE AUTO TNTC /HPF (0-3); SPECIFIC GRAVITY URINE AUTO 1.012 (1.002-1.035); SQUAMOUS EPITHELIAL CELL UR AU 0 /HPF (0-6); UROBILINOGEN, URINE AUTO 0.2 mg/dL (0.0-2.0); WBC, URINE AUTO 2 /HPF (0-3)
[2021-06-20 07:05] LABS: BASO % 0.3 % (0.0-1.0); EOS # 0.5 10^3/uL (0.0-0.5); HEMATOCRIT 29.8 % (42.0-52.0); HEMOGLOBIN 9.8 g/dl (13.5-17.5); LYMPH # 1.2 10^3/uL (1.5-5.0); LYMPH % 12.9 % (24.0-44.0); MEAN CORPUSCULAR HEMOGLOBIN 29.3 pg (27.0-33.0); MEAN CORPUSCULAR HGB CONC 32.9 g/dl (32.0-36.5); MONO # 0.6 10^3/uL (0.0-0.8); NEUTROPHILS # 6.6 10^3/uL (1.5-8.5); NEUTROPHILS % 74.4 % (36.0-66.0); PLATELET COUNT, AUTOMATED 215 10^3/uL (150-450); RED BLOOD COUNT 3.35 10^6/uL (4.30-6.10); WHITE BLOOD COUNT 8.9 10^3/uL (4.0-10.0)
[2021-06-20] MEDS: HumaLOG INSULIN (NovoLOG) PER UNIT SC SCH ×4 (07:30→20:24)
[2021-06-20] MEDS: amLODIPine 5 MG TAB PO SCH (09:00)
[2021-06-20] MEDS: METOPROLOL SUCC (TopROL XL) 50MG **XL** TAB PO SCH (09:00)
[2021-06-20] MEDS: DOCUSATE SODIUM 100MG CAPSULE PO SCH ×2 (09:00→20:20)
--- NOTE | 2021-06-20 09:09 | ECHO ---
ECHOCARDIOGRAM DATE OF PROCEDURE: 06/19/2021 Age: Gender: Male Height: 180 cm Weight: 82 kg REFERRING PHYSICIAN: Karon Leon M.D. INDICATION: Abnormal EKG, atrial fibrillation. MEASUREMENTS: LV 5.3 cm IVS 0.9 cm LVPW 1.8 cm Aorta 3.6 cm LA 3.5 cm Left atrial volume index 32 (cut out) 1.7 FINDINGS: This study is of acceptable technical quality. Patient was in atrial fibrillation with rapid ventricular rate. Left ventricle is normal size and has normal contractility. I estimate the ejection fraction (EF) around 65-70%. Right ventricle is also normal size and systolic function. Left atrium is upper limits of normal size. Right atrium also appears normal. Aortic valve has three cusps. It is mildly sclerotic, but mobility is preserved. Mitral and tricuspid valves appear normal. Pulmonic valve was not well visualized. No pericardial effusion is noted. Inferior vena cava is of normal size and appropriately collapses with inspiration indicative of normal central venous pressure. Aortic root is normal. Aortic arch and abdominal aorta were not well seen. Doppler interrogation reveals competent aortic valve. There is mild mitral and mild tricuspid insufficiency. Quality of tricuspid regurgitation (TR) jet was not sufficient in order to calculate pulmonary artery pressure. Evaluation of diastolic function is not conclusive due to underlying atrial fibrillation. CONCLUSIONS: 1. Study is of acceptable technical quality. Patient is in atrial fibrillation with rapid ventricular response. 2. Normal left ventricular (LV) size with normal LV systolic function and estimated left ventricular ejection fraction (LVEF) 65-70%. 3. No significant valvular disease. 4. Normal central venous pressure, but unable to estimate pulmonary artery pressure. 6. Borderline increased left atrial size.
[2021-06-20 09:43] LABS: ALBUMIN 3.2 GM/DL (3.2-5.2); ALT/SGPT 19 U/L (12-78); BILIRUBIN,TOTAL 1.3 MG/DL (0.2-1.0); BLOOD UREA NITROGEN 10 MG/DL (7-18); CALCIUM LEVEL 8.3 MG/DL (8.8-10.2); CARBON DIOXIDE LEVEL 22 MEQ/L (21-32); CHLORIDE LEVEL 117 MEQ/L (98-107); CREATININE FOR GFR 0.94 MG/DL (0.70-1.30); GLOMERULAR FILTRATION RATE > 60.0 (>49); GLUCOSE, FASTING 113 MG/DL (70-100); MAGNESIUM LEVEL 1.8 MG/DL (1.8-2.4); SODIUM LEVEL 146 MEQ/L (136-145)
[2021-06-20] MEDS: FOLIC ACID 1 MG TAB PO SCH (10:00)
[2021-06-20] MEDS: THIAMINE 100 MG TAB PO SCH (10:00)
[2021-06-20] MEDS: allopurinoL 300 MG TAB PO SCH (10:00)
[2021-06-20] MEDS: MULTIVITAMINS/MINERALS THERAP 1 TAB PO SCH (10:00)
[2021-06-20] MEDS: HEPARIN DRIP 25,000 UNITS in IV 1 EA IV SCH (13:37)
--- NOTE | 2021-06-20 17:08 | IPNPDOC ---
Date Seen The patient was seen on 06/20/21. Progress Note SUBJECTIVE: Patient is a 65-year-old male who was found unresponsive at his home after going to the bathroom. At the ED he was found to be combative and was given Versed. He was also noted to be hypotensive and tachycardic on presentation was given IV fluid resuscitation and digoxin. States last night he remembers he was going to the bathroom and then nothing after that. His girlfriend Rajwinder was called for more information pertaining to the event. She said the patient was complaining of stomach pains over the weekend and on Sunday he did not feel well still and he took an [place] and laid down on the couch. He then got up to go to the bathroom to vomit. The girlfriend then heard a fall and then went to go check on him after she heard no response. She saw patient on the ground with eyes rolled back in his head, shaking, and not responding to her commands. She then called EMS who brought him to the ED. Girlfrienmaryann also states that a similar event happen a couple months ago. I suspect she is referring to an event that happened in March. She also told us that he has been taking cephalexin 500 mg twice daily prescribed by an urgent care, since Sunday for swollen left foot. On examination patient is noted to have a very swollen right side of his tongue. OBJECTIVE PHYSICAL EXAMINATION: VITAL SIGNS: Please see below. GENERAL: 65-year-old male, resting in bed, no acute distress, says his tongue hurts. HEENT: Head normocephalic/atraumatic; eyes EOMI, PERRLA; mouth moist mucous membranes, swollen bruised tongue mainly on the right side, very poor dentition and many missing teeth CARDIOVASCULAR: Irregularly irregular RESPIRATORY: Clear to auscultation bilaterally. ABDOMINAL: Normoactive bowel sounds and nontender to palpation all 4 quadrants EXTREMITIES: 2+ radial pulses LABORATORY DATA, IMAGING STUDIES, MICROBIOLOGY: Please see below. Imaging: Head CT 06/19/2021: Age-related changes. No acute intracranial hemorrhage, infarction, or mass/mass effect. Renal ultrasound 06/19/2021: 1. Chronic medical renal disease. No hydronephrosis. 2. Small amount of left perinephric fluid of uncertain etiology. Correlation with urinalysis to exclude pyelonephritis may be warranted. 3. Heterogeneous enlarged prostate gland with mass effect on the base of the bladder. Echocardiogram: 06/19/2021 1. Study is of acceptable technical quality. Patient is in atrial fibrillation with rapid ventricular response. 2. Normal left ventricular (LV) size with normal LV systolic function and estimated left ventricular ejection fraction (LVEF) 65-70%. 3. No significant valvular disease. 4. Normal central venous pressure, but unable to estimate pulmonary artery pressure. 5. Borderline increased left atrial size.. DVT prophylaxis ordered?: Heparin ASSESSMENT AND PLAN: This is a -year-old [RACE] [GENDER] with . PROBLEMS: Syncope / Found down - possibly 2/2 seizure - possibly 2/2 withdrawal - Presented to ER brought in by EMS after he was found down; sees Versed in the field after he was combative - No focal deficits observed - Patient has had a prior admission 03/2021 with similar presentation (this occurred at work per his girlfriend) - Will get CT head stat / Prolactin normal at 7.0 - Discussed with Neurology; will start Keppra 750 BID - Story of events that girlfriend provided seems consistent with a tonic-clonic seizure - EEG ordered Suspected alcohol withdrawal - Patient reports that he only drinks one beer a week - Ethanol level negative currently - Will start Thiamine / Folate / MVI - Will start Serax Atrial fibrillation - Patient was found to have heart rates of greater than 140 - Denies any chest pain, shortness breath or palpitations - EKG reviewed and repeated and is consistent for atrial fibrillation - Troponin negative; will continue trend - s/p Digoxin in the ER and Diltiazem on route - Will c/w telemetry / ECHO obtained (see findings above - Will start Metoprolol tartrate q6h - Advised patient of risk of stroke given atrial fibrillation; discussed risks and benefits of anticoagulation therapy excepts risks and will start anticoagulation - Heparin started ARELY - likely 2/2 pre-renal etiology - Will check urine electrolyte / renal US - Will avoid nephrotoxic medications - Will start IV fluid hydration - Post void bladder scan showed 300 cc out and 0 residual volume - PSA screen pending #Heterogeneous enlarged prostate - Renal ultrasound finding - PSA pending Electrolyte abnormalities - Hypokalemia / Hypomagnesemia - Will supplement via IV and PO routes - Will repeat labs HTN - Hypotensive on arrival - Continue amlodipine and metoprolol and follow holding parameters DLP - c/w Atorvastatin NIDDM2 - Will start ISS - A1c pending Questionable prior seizure - Prior admission 03/2021 Nicotine dependence - Advised smoking cessation - Will start Nicotine patch Gout - c/w Allopurinol DVT prophylaxis - Heparin Disposition: - Anticipate 2 midnight stay - Awaiting clinical improvement VS, I&O, 24H, Fishbone Vital Signs/I&O Vital Signs Date Time Temp Pulse Resp B/P (MAP) Pulse Ox O2 Delivery O2 Flow Rate FiO2 06/20/21 12:39 98.4 65 18 139/68 (91) 98 Room Air I&O- Last 24 Hours up to 6 AM 06/20/21 06:00 Intake Total 5200.0 ml Output Total 3250 ml Balance 1950.0 ml Laboratory Data 24H LABS Laboratory Tests 2 06/19/21 17:35: Anion Gap 8, Glomerular Filtration Rate > 60.0, Calcium Level 7.5L, Magnesium Level 1.7L 06/19/21 17:36: Prothrombin Time 14.6H, Prothromb Time International Ratio 1.10, Activated Partial Thromboplast Time 28.9 06/19/21 17:50: Bedside Glucose (Misc Panel) 100 06/19/21 20:02: Activated Partial Thromboplast Time 41.1H 06/19/21 20:10: Bedside Glucose (Misc Panel) 98 06/20/21 06:12: Bedside Glucose (Misc Panel) 108 06/20/21 06:35: Urine Color YELLOW, Urine Appearance CLOUDYH, Urine pH 6.0, Urine Specific Stacy 1.012, Urine Protein 2+H, Urine Glucose (Auto)(UA) NEGATIVE, Urine Ketones (Auto) NEGATIVE, Urine Blood 3+H, Urine Nitrite NEGATIVE, Urine Bilirubin NEGATIVE, Urine Urobilinogen 0.2, Urine Leukocyte Esterase (Auto) TRACEH, Urine WBC (Auto) 2, Urine RBC (Auto) TNTCH, Urine Hyaline Casts (Auto) 0, Urine Bacteria (Auto) NEGATIVE, Urine Squamous Epithelial Cells 0, Urine Sperm (Auto) 06/20/21 06:47: Immature Granulocyte % (Auto) 0.4, Neutrophils (%) (Auto) 74.4H, Lymphocytes (%) (Auto) 12.9L, Monocytes (%) (Auto) 7.0, Eosinophils (%) (Auto) 5.0H, Basophils (%) (Auto) 0.3, Neutrophils # (Auto) 6.6, Lymphocytes # (Auto) 1.2L, Monocytes # (Auto) 0.6, Eosinophils # (Auto) 0.5, Basophils # (Auto) 0.0, Nucleated Red Blood Cells % (auto) 0.0, Activated Partial Thromboplast Time > 240.0*H, Anion Gap 7L, Glomerular Filtration Rate > 60.0, Calcium Level 8.3L, Magnesium Level 1.8, Total Bilirubin 1.3H, Aspartate Amino Transf (AST/SGOT) 26, Alanine Aminotransferase (ALT/SGPT) 19, Alkaline Phosphatase 80, Total Protein 6.0L, Albumin 3.2, Albumin/Globulin Ratio 1.1, Prostate Specific Antigen Screen 3.64 06/20/21 11:45: Bedside Glucose (Misc Panel) 112 CBC/BMP Laboratory Tests 06/19/21 17:35 06/20/21 06:47 Microbiology Microbiology 06/20/21 Urine Culture, Received Pending 06/19/21 Blood Culture, Received Pending 06/19/21 Blood Culture - Preliminary, Resulted No growth after 24 hours . All specim... GME ATTESTATION GME ATTESTATION My faculty preceptor for this patient encounter was physically present during the encounter and was fully available. All aspects of the patient interview, examination, medical decision making process, and medical care plan development were reviewed and approved by the faculty preceptor. The faculty preceptor is aware and concurs with the plan as stated in the body of this note and will attest to such by his/her cosignature. ATTENDING NOTE I, Julito Curry MD, have independently examined this patient and performed my own physical exam, as well as reviewed the documentation and edited where necessary. I have discussed in detail with the resident / student the findings and plan of treatment as documented by the resident / student and edited their note. I agree with their findings and treatment plan and have edited their documentation. Axel Avery DO Jun 20, 2021 17:08 JULITO CURRY MD Jun 24, 2021 12:37
[2021-06-20 19:32] LABS: PARTIAL THROMBOPLASTIN TIME 67.8 SECONDS (25.9-37.0)
--- NOTE | 2021-06-20 19:44 | ECGEPIP ---
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
[2021-06-20] MEDS: ATORVASTATIN 20 MG TAB PO SCH (20:20)
[2021-06-21] VITALS (9 sets, daily range): BP systolic 129–160; BP diastolic 65–74
[2021-06-21] MEDS: NS 1,000 ML IV SCH ×2 (00:45→15:33)
[2021-06-21] MEDS: HEPARIN DRIP 25,000 UNITS in IV 1 EA IV SCH ×2 (02:19→07:48)
[2021-06-21] MEDS: levETIRAcetam INJection 750 MG in D5W 100 ML IV SCH ×2 (02:50→14:47)
[2021-06-21 05:14] LABS: BASO % 0.2 % (0.0-1.0); EOS # 0.5 10^3/uL (0.0-0.5); EOS % 4.5 % (0.0-3.0); HEMATOCRIT 28.2 % (42.0-52.0); HEMOGLOBIN 9.2 g/dl (13.5-17.5); LYMPH # 1.3 10^3/uL (1.5-5.0); LYMPH % 11.7 % (24.0-44.0); MEAN CORPUSCULAR HEMOGLOBIN 29.2 pg (27.0-33.0); MEAN CORPUSCULAR HGB CONC 32.6 g/dl (32.0-36.5); MEAN CORPUSCULAR VOLUME 89.5 fl (80.0-96.0); MONO % 8.9 % (2.0-8.0); NEUTROPHILS # 7.9 10^3/uL (1.5-8.5); NEUTROPHILS % 74.5 % (36.0-66.0); PLATELET COUNT, AUTOMATED 190 10^3/uL (150-450); RED BLOOD COUNT 3.15 10^6/uL (4.30-6.10); WHITE BLOOD COUNT 10.7 10^3/uL (4.0-10.0)
[2021-06-21] MEDS: OXAZEPAM 10 MG CAP PO SCH (05:33)
[2021-06-21 05:40] LABS: ALBUMIN 2.9 GM/DL (3.2-5.2); ALT/SGPT 16 U/L (12-78); BILIRUBIN,TOTAL 1.5 MG/DL (0.2-1.0); BLOOD UREA NITROGEN 7 MG/DL (7-18); CALCIUM LEVEL 8.8 MG/DL (8.8-10.2); CARBON DIOXIDE LEVEL 26 MEQ/L (21-32); CHLORIDE LEVEL 110 MEQ/L (98-107); CREATININE FOR GFR 0.87 MG/DL (0.70-1.30); GLOMERULAR FILTRATION RATE > 60.0 (>49); GLUCOSE, FASTING 112 MG/DL (70-100); MAGNESIUM LEVEL 1.2 MG/DL (1.8-2.4); POTASSIUM SERUM 3.6 MEQ/L (3.5-5.1); SODIUM LEVEL 139 MEQ/L (136-145); TOTAL PROTEIN 6.2 GM/DL (6.4-8.2)
[2021-06-21] MEDS: HumaLOG INSULIN (NovoLOG) PER UNIT SC SCH ×4 (07:30→20:42)
[2021-06-21] MEDS: HEPARIN SOD (PORCINE) 5000UNITS/ML 1ML VIAL/SYRINGE IV PRN (07:46)
[2021-06-21] MEDS: MULTIVITAMINS/MINERALS THERAP 1 TAB PO SCH (09:25)
[2021-06-21] MEDS: allopurinoL 300 MG TAB PO SCH (09:25)
[2021-06-21] MEDS: amLODIPine 5 MG TAB PO SCH (09:25)
[2021-06-21] MEDS: METOPROLOL SUCC (TopROL XL) 50MG **XL** TAB PO SCH (09:25)
[2021-06-21] MEDS: DOCUSATE SODIUM 100MG CAPSULE PO SCH ×2 (09:25→20:42)
[2021-06-21] MEDS: FOLIC ACID 1 MG TAB PO SCH (09:26)
[2021-06-21] MEDS: THIAMINE 100 MG TAB PO SCH (09:29)
[2021-06-21 09:43] LABS: APTT 1:2 SUBSTITUTION 48.6 SECONDS
[2021-06-21 10:26] LABS: VITAMIN B12 LEVEL 742 PG/ML
[2021-06-21 10:27] LABS: FOLATE 18.2 NG/ML
[2021-06-21] MEDS ORDERED: MAG SULF 1GM/100ML (MAG RUN) 1 GM in IV 1 EA IV ONE (10:45)
--- NOTE | 2021-06-21 11:33 | IPNPDOC ---
Date Seen The patient was seen on 06/21/21. Progress Note SUBJECTIVE: Patient is a 65-year-old male who experienced a syncopal episode secondary to seizure versus alcohol withdrawal, and new onset atrial fibrillation along with ARELY. Compared to yesterday patient says his tongue is feeling better. I asked patient why he needed antibiotics for his foot and he was unable to tell me why, he just remembered that he was unable to walk on it. He seems not as alert and oriented as yesterday. Last night nurse Ginger Multani complained that patient patient would frequently try to get out of bed which caused tugging on his IV lines. She had to frequently remind patient why he was in the hospital and why he needed to stay because he was trying to leave AMA. I then went down to explain to the patient why it was important that he does stay but also explained to him that he has the right to leave if he so chooses. I also ordered a sitter to try to keep him from falling if he tries to get up. I also explained to him that he needs to us e the call button if he wants to get up to use the bathroom or sit in the chair. At the time he agreed to this. Review of systems: Constitutional: Denies fevers, chills, night sweats Cardiac: Denies chest pain, tachycardia Respiratory: Denies shortness of breath, pain with breathing Gastrointestinal: Denies nausea, vomiting, diarrhea Genitourinary: Denies dysuria, hematuria Neurological: Denies headache, dizziness OBJECTIVE PHYSICAL EXAMINATION: VITAL SIGNS: Please see below. GENERAL: 65-year-old male, resting in bed, no acute distress, questioning why he is at the hospital HEENT: Head normocephalic/atraumatic, eyes PERRLA and EOMI, tongue appears less swollen than yesterday, patient still slurring speech due to swelling CARDIOVASCULAR: Regular rate and rhythm appreciated on auscultation. RESPIRATORY: Clear to auscultation bilaterally. ABDOMINAL: Normoactive bowel sounds in all quadrants, nontender to palpation, nondistended, no rebound or guarding EXTREMITIES: No swelling appreciated in the lower extremities, 2+ radial pulses PSYCHOLOGICAL: Alert and oriented to place and person only (did not know the year, why he was here, or who the president was LABORATORY DATA, IMAGING STUDIES, MICROBIOLOGY: Please see below. Imaging: Head CT 06/19/2021: Age-related changes. No acute intracranial hemorrhage, infarction, or mass/mass effect. Renal ultrasound 06/19/2021: 1. Chronic medical renal disease. No hydronephrosis. 2. Small amount of left perinephric fluid of uncertain etiology. Correlation with urinalysis to exclude pyelonephritis may be warranted. 3. Heterogeneous enlarged prostate gland with mass effect on the base of the bladder. Echocardiogram: 06/19/2021 1. Study is of acceptable technical quality. Patient is in atrial fibrillation with rapid ventricular response. 2. Normal left ventricular (LV) size with normal LV systolic function and estimated left ventricular ejection fraction (LVEF) 65-70%. 3. No significant valvular disease. 4. Normal central venous pressure, but unable to estimate pulmonary artery pressure. 5. Borderline increased left atrial size.. Echocardiogram: . DVT prophylaxis ordered?: Heparin ASSESSMENT AND PLAN: This is a 65-year-old male with syncopal episode secondary to seizure episode versus alcohol withdrawal. His mentation seems to have declined since yesterday. We will try to research this further to see what patient's true baseline is. Syncope / Found down - possibly 2/2 seizure - possibly 2/2 withdrawal - Presented to ER brought in by EMS after he was found down; given Versed in the field after he was combative - Patient has had a prior admission 03/2021 with similar presentation (this occurred at work per his girlfriend) - Head CT unremarkable/ Prolactin normal at 7.0 - Discussed with Neurology; will start Keppra 750 BID - Story of events that girlfriend provided seems consistent with a tonic-clonic seizure - EEG ordered - EEG from previous admission dated 03/16/2021 was abnormal due to presence of mild generalized slowing and disorganization of background consistent with n onspecific diffuse cerebral dysfunction suggesting an encephalopathy due to multiple potential causes, including toxic, metabolic, infection, medication related, or multifocal structural brain abnormalities. Suspected alcohol withdrawal - Patient reports that he only drinks one beer a week - Ethanol level negative currently - Will start Thiamine / Folate / MVI - Will start Serax - We will discuss with patient's girlfriend (Rajwinder [phone])whether he has a history with alcohol abuse due to altered presentation today and events that occurred last night left voicemail requesting callback to resident phone @10:50 -Vitamin B12 and folate within normal limits - Continue CIWA protocol Atrial fibrillation - Patient was found to have heart rates of greater than 140 - Denies any chest pain, shortness breath or palpitations - EKG reviewed and repeated and is consistent for atrial fibrillation - Troponin negative; will continue trend - s/p Digoxin in the ER and Diltiazem on route - Will c/w telemetry / ECHO obtained (see findings above - Will start Metoprolol tartrate q6h - Advised patient of risk of stroke given atrial fibrillation; discussed risks and benefits of anticoagulation therapy excepts risks and will start anticoagulation - D/c heparin and will be started on eliquis 5mg bid ARELY - likely 2/2 pre-renal etiology - Will check urine electrolyte / renal US - Will avoid nephrotoxic medications - Will start IV fluid hydration - Post void bladder scan showed 300 cc out and 0 residual volume - UA negative for infection - PSA screen within normal limits #Heterogeneous enlarged prostate - Renal ultrasound finding - PSA screen within normal limits Electrolyte abnormalities - Hypokalemia wnl this morning - Hypomagnesemia at 1.2 supplementation given with 2 Mg runs - Will supplement via IV and PO routes - Will repeat labs - Trend and FU phosphorus HTN - Hypotensive on arrival - Continue amlodipine and metoprolol and follow holding parameters DLP - c/w Atorvastatin NIDDM2 - Will start ISS - A1c pending Questionable prior seizure - Prior admission 03/2021 Nicotine dependence - Advised smoking cessation - Will start Nicotine patch Gout - c/w Allopurinol DVT prophylaxis - Changed to Eliquis 5mg BID VS, I&O, 24H, Josebone Vital Signs/I&O Vital Signs Date Time Temp Pulse Resp B/P (MAP) Pulse Ox O2 Delivery O2 Flow Rate FiO2 06/21/21 08:00 158/ 06/21/21 08:00 99.0 75 18 98 Room Air I&O- Last 24 Hours up to 6 AM 06/21/21 06:00 Intake Total 3456.0 ml Output Total 2550 ml Balance 906.0 ml Laboratory Data 24H LABS Laboratory Tests 2 06/20/21 11:45: Bedside Glucose (Misc Panel) 112 06/20/21 16:55: Bedside Glucose (Misc Panel) 87 06/20/21 17:37: Activated Partial Thromboplast Time 67.8H, Mix PTT Patient/Normal 1:1 48.6 10/11/21 20:23: Bedside Glucose (Misc Panel) 94 06/20/21 23:44: Activated Partial Thromboplast Time 124.4*H 06/21/21 04:55: Activated Partial Thromboplast Time 52.7H, Immature Granulocyte % (Auto) 0.2, Neutrophils (%) (Auto) 74.5H, Lymphocytes (%) (Auto) 11.7L, Monocytes (%) (Auto) 8.9H, Eosinophils (%) (Auto) 4.5H, Basophils (%) (Auto) 0.2, Neutrophils # (Auto) 7.9, Lymphocytes # (Auto) 1.3L, Monocytes # (Auto) 1.0H, Eosinophils # (Auto) 0.5, Basophils # (Auto) 0.0, Nucleated Red Blood Cells % (auto) 0.0, Anion Gap 3L, Glomerular Filtration Rate > 60.0, Calcium Level 8.8, Magnesium Level 1.2L, Total Bilirubin 1.5H, Aspartate Amino Transf (AST/SGOT) 18, Alanine Aminotransferase (ALT/SGPT) 16, Alkaline Phosphatase 81, Total Protein 6.2L, Albumin 2.9L, Albumin/Globulin Ratio 0.9 06/21/21 09:23: Bedside Glucose (Misc Panel) 105 CBC/BMP Laboratory Tests 06/21/21 04:55 Microbiology Microbiology 06/20/21 Urine Culture - Final, Complete 06/19/21 Blood Culture - Preliminary, Resulted No growth after 24 hours . All specim... 06/19/21 Blood Culture - Preliminary, Resulted No growth after 24 hours . All specim... GME ATTESTATION GME ATTESTATION My faculty preceptor for this patient encounter was physically present during the encounter and was fully available. All aspects of the patient interview, examination, medical decision making process, and medical care plan development were reviewed and approved by the faculty preceptor. The faculty preceptor is aware and concurs with the plan as stated in the body of this note and will attest to such by his/her cosignature. ATTENDING NOTE I, Julito Curry MD, have independently examined this patient and performed my own physical exam, as well as reviewed the documentation and edited where necessary. I have discussed in detail with the resident / student the findings and plan of treatment as documented by the resident / student and edited their note. I agree with their findings and treatment plan and have edited their documentation. Axel Avery DO Jun 21, 2021 11:33 JULITO CURRY MD Jun 24, 2021 12:54
[2021-06-21] MEDS: APIXABAN 5 MG TAB (ELIQUIS) PO SCH ×2 (12:23→20:41)
[2021-06-21] MEDS: LORazepam 2 MG TAB PO PRN ×2 (12:24→16:34)
[2021-06-21] MEDS: MAG SULF 1GM/100ML (MAG RUN) 1 GM in IV 1 EA IV SCH ×2 (12:25→13:29)
[2021-06-21] MEDS ORDERED: ELIQ5TAB PO (13:12)
[2021-06-21] MEDS: ATORVASTATIN 20 MG TAB PO SCH (20:41)
[2021-06-22] VITALS: BP 161/77
[2021-06-22] MEDS: NS 1,000 ML IV SCH ×2 (00:12→14:12)
[2021-06-22] MEDS: levETIRAcetam INJection 750 MG in D5W 100 ML IV SCH ×2 (03:04→15:21)
[2021-06-22 04:00] VITALS: BP 125/58
[2021-06-22 06:06] LABS: BASO % 0.2 % (0.0-1.0); EOS # 0.4 10^3/uL (0.0-0.5); EOS % 4.5 % (0.0-3.0); HEMATOCRIT 26.7 % (42.0-52.0); HEMOGLOBIN 8.9 g/dl (13.5-17.5); LYMPH % 12.5 % (24.0-44.0); MEAN CORPUSCULAR HEMOGLOBIN 29.4 pg (27.0-33.0); MEAN CORPUSCULAR HGB CONC 33.3 g/dl (32.0-36.5); MEAN CORPUSCULAR VOLUME 88.1 fl (80.0-96.0); MONO # 0.8 10^3/uL (0.0-0.8); MONO % 9.3 % (2.0-8.0); NEUTROPHILS % 73.1 % (36.0-66.0); PLATELET COUNT, AUTOMATED 194 10^3/uL (150-450); RED BLOOD COUNT 3.03 10^6/uL (4.30-6.10); WHITE BLOOD COUNT 8.2 10^3/uL (4.0-10.0)
[2021-06-22 06:29] LABS: ALBUMIN 2.8 GM/DL (3.2-5.2); ALT/SGPT 15 U/L (12-78); BILIRUBIN,TOTAL 1.4 MG/DL (0.2-1.0); BLOOD UREA NITROGEN 7 MG/DL (7-18); CALCIUM LEVEL 8.6 MG/DL (8.8-10.2); CARBON DIOXIDE LEVEL 23 MEQ/L (21-32); CHLORIDE LEVEL 110 MEQ/L (98-107); CREATININE FOR GFR 0.74 MG/DL (0.70-1.30); GLOMERULAR FILTRATION RATE > 60.0 (>49); GLUCOSE, FASTING 102 MG/DL (70-100); MAGNESIUM LEVEL 1.3 MG/DL (1.8-2.4); PHOSPHORUS LEVEL 2.4 MG/DL (2.5-4.9); POTASSIUM SERUM 3.8 MEQ/L (3.5-5.1); SODIUM LEVEL 142 MEQ/L (136-145); TOTAL PROTEIN 5.8 GM/DL (6.4-8.2)
[2021-06-22] MEDS: HumaLOG INSULIN (NovoLOG) PER UNIT SC SCH ×4 (07:30→21:00)
[2021-06-22] MEDS ORDERED: MAG SULF 1GM/100ML (MAG RUN) 1 GM in IV 1 EA IV ONE ×3 (08:00→16:05)
[2021-06-22] MEDS: MULTIVITAMINS/MINERALS THERAP 1 TAB PO SCH (08:16)
[2021-06-22] MEDS: allopurinoL 300 MG TAB PO SCH (08:16)
[2021-06-22] MEDS: amLODIPine 5 MG TAB PO SCH (08:16)
[2021-06-22] MEDS: DOCUSATE SODIUM 100MG CAPSULE PO SCH ×2 (08:16→20:19)
[2021-06-22] MEDS: FOLIC ACID 1 MG TAB PO SCH (08:17)
[2021-06-22] MEDS: THIAMINE 100 MG TAB PO SCH (08:17)
[2021-06-22] MEDS: METOPROLOL SUCC (TopROL XL) 50MG **XL** TAB PO SCH (08:17)
[2021-06-22] MEDS: APIXABAN 5 MG TAB (ELIQUIS) PO SCH ×2 (08:17→20:19)
[2021-06-22 08:30] VITALS: BP 135/63
--- NOTE | 2021-06-22 09:48 | EEG ---
ELECTROENCEPHALOGRAM DATE: 06/21/2021 REFERRING PHYSICIAN: GOYO DE SOUZA MD DIAGNOSIS: Possible seizure, alcohol withdrawal. EEG#: [id number] HISTORY: The patient is a 65-year-old man with a history of hypertension, diabetes, gout, who was found unresponsive. 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 He is currently taking folic acid, thiamine, multivitamin, amlodipine, metoprolol, oxazepam, atorvastatin, Keppra, etc. TECHNICAL DESCRIPTION: This digital electroencephalogram (EEG) was recorded by 21 scalp, ear, and two electrocardiogram (EKG) electrodes and was reviewed in bipolar and referential montages following reformatting in 10-20 international electrode placement system. INTERPRETATION: The patient was noted to be in awake and drowsy states during this EEG. Resting and awake background rhythm consisted of 10 Hz alpha activity measuring 15-40 microvolts in amplitude which was symmetric and reactive to eye opening. Attenuation of posterior dominant rhythm was seen during transition to drowsiness. Stage I and II sleep were reviewed and were symmetric bilaterally. Hyperventilation was not performed. Photic stimulation remained unremarkable. EKG revealed normal sinus rhythm. No focal, lateralizing, or epileptiform abnormalities were seen. No relevant clinical activity was noted. CONCLUSION: This EEG in awake, drowsy states, stage I and II sleep is within normal limits.
[2021-06-22] MEDS ORDERED: POTASSIUM PHOSPHATE INJ 15 MMOL in D5W 250 ML IV ONE (10:00)
[2021-06-22] MEDS: MAGNESIUM OXIDE 400MG TAB (MAG-OX) PO SCH (12:13)
[2021-06-22 13:36] VITALS: BP 150/68
[2021-06-22 14:00] VITALS: BP 145/65
--- NOTE | 2021-06-22 15:48 | IPNPDOC ---
Date Seen The patient was seen on 06/22/21. Progress Note SUBJECTIVE: Patient is a 65-year-old male with syncopal episode secondary to seizure versus alcohol withdrawal. Today patient seems much more with methylation yesterday. His tongue also appears to be less swollen than it was yesterday and that it is easier to understand him. I have called his brother Uri and updated him on his condition after getting permission from patient mynor karna. Per sitter, patient tried to get up from bed 4 times overnight and seemed confused. OBJECTIVE PHYSICAL EXAMINATION: VITAL SIGNS: Please see below. GENERAL: 65-year-old male, lying in bed, no acute distress HEENT: Head normocephalic/atraumatic; moist mucous membranes, right side of tongue less swollen bruised compared to previous days CARDIOVASCULAR: Regular rate and rhythm. RESPIRATORY: Clear to auscultation bilaterally, no wheezes, no rhonchi, no crackles. ABDOMINAL: Normoactive bowel sounds and nontender to palpation throughout, no rebound tenderness or guarding EXTREMITIES: No swelling appreciated in lower extremities, 2+ radial pulses bilaterally PSYCHOLOGICAL: Alert and oriented x4 which is a big improvement from yesterday LABORATORY DATA, IMAGING STUDIES, MICROBIOLOGY: Please see below. DVT prophylaxis ordered?: Lynqulauren ASSESSMENT AND PLAN: This is a 65-year-old male with syncopal episode status post seizure versus alcohol withdrawal. His mental status was somewhat altered yesterday and as result we were not able to update his family on his condition until proxy was determined. PROBLEMS: Syncope / Found down - possibly 2/2 seizure - possibly 2/2 withdrawal - Presented to ER brought in by EMS after he was found down; given Versed in the field after he was combative - Patient has had a prior admission 03/2021 with similar presentation (this occurred at work per his girlfriend) - Head CT unremarkable/ Prolactin normal at 7.0 - Discussed with Neurology; will start Keppra 750 BID - Story of events that girlfriend provided seems consistent with a tonic-clonic seizure - EEG ordered - EEG from previous admission dated 03/16/2021 was abnormal due to presence of mild generalized slowing and disorganization of background consistent with non specific diffuse cerebral dysfunction suggesting an encephalopathy due to multiple potential causes, including toxic, metabolic, infection, medication related, or multifocal structural brain abnormalities. Suspected alcohol withdrawal - Patient reports that he only drinks one beer a week - Ethanol level negative currently - Will start Thiamine / Folate / MVI - Will start Serax - We will discuss with patient's girlfriend (Rajwinder [phone])whether he has a history with alcohol abuse due to altered presentation today and events that occurred last night left voicemail requesting callback to resident phone @10:50 -Vitamin B12 and folate within normal limits - Continue CIWA protocol - Mechanical soft diet ordered -EEG was within normal limits - MRI brain without contrast ordered to examine other possible reasons for patient's presentation in an altered state Atrial fibrillation - Patient was found to have heart rates of greater than 140 - Denies any chest pain, shortness breath or palpitations - EKG reviewed and repeated and is consistent for atrial fibrillation - Troponin negative; will continue trend - s/p Digoxin in the ER and Diltiazem on route - Will c/w telemetry / ECHO obtained (see findings above - Will start Metoprolol tartrate q6h - Advised patient of risk of stroke given atrial fibrillation; discussed risks and benefits of anticoagulation therapy excepts risks and will start anticoagulation - D/c heparin and will be started on eliquis 5mg bid ARELY - likely 2/2 pre-renal etiology - Will check urine electrolyte / renal US - Will avoid nephrotoxic medications - Will start IV fluid hydration - Post void bladder scan showed 300 cc out and 0 residual volume - UA negative for infection - PSA screen within normal limits Heterogeneous enlarged prostate - Renal ultrasound finding - PSA screen within normal limits - Follow-up with urology outpatient Electrolyte abnormalities - Will supplement via IV and PO routes - Hypokalemia wnl this morning - Magnesium was low again this morning at 1.3; patient was given 2 Mg runs and will have an additional 2, 4 hours later due to repeat Mg of 1.2. Going for patient will she 400 mg IV magnesium oxide once a day. - Will supplement via IV and PO routes - Will repeat labs - Trend and FU phosphorus HTN - Hypotensive on arrival - Continue amlodipine and metoprolol and follow holding parameters DLP - c/w Atorvastatin NIDDM2 - Will start ISS - A1c pending Questionable prior seizure - Prior admission 03/2021 Nicotine dependence - Advised smoking cessation - Will start Nicotine patch Gout - c/w Allopurinol Healthcare proxy -Patient was unable to lucidly voice who he would like as his healthcare proxy due to altered mental state yesterday. -As a result we were not able to share any information with his family regarding his current health status and situation. -Patient was much more with it and and then alert and oriented state today and has decided to remain with his brother Uri his healthcare proxy going forward. -Uri has been updated on his brother situation and I suspect he will let the sister and girlfriend know of the patient's health status. -We will keep Uir updated going forward. DVT prophylaxis - Changed to Eliquis 5mg BID VS, I&O, 24H, Fishbone Vital Signs/I&O Vital Signs Date Time Temp Pulse Resp B/P (MAP) Pulse Ox O2 Delivery O2 Flow Rate FiO2 06/22/21 13:36 70 150/68 06/22/21 08:30 98.7 18 98 Room Air I&O- Last 24 Hours up to 6 AM 06/22/21 06:00 Intake Total 3068 ml Output Total 2550 ml Balance 518 ml Laboratory Data 24H LABS Laboratory Tests 2 06/21/21 16:37: Bedside Glucose (Misc Panel) 105 06/21/21 20:41: Bedside Glucose (Misc Panel) 101 06/22/21 05:34: Immature Granulocyte % (Auto) 0.4, Neutrophils (%) (Auto) 73.1H, Lymphocytes (%) (Auto) 12.5L, Monocytes (%) (Auto) 9.3H, Eosinophils (%) (Auto) 4.5H, Basophils (%) (Auto) 0.2, Neutrophils # (Auto) 6.0, Lymphocytes # (Auto) 1.0L, Monocytes # (Auto) 0.8, Eosinophils # (Auto) 0.4, Basophils # (Auto) 0.0, Nucleated Red Blood Cells % (auto) 0.0, Anion Gap 9, Glomerular Filtration Rate > 60.0, Jewel cium Level 8.6L, Phosphorus Level 2.4L, Magnesium Level 1.3L, Total Bilirubin 1.4H, Aspartate Amino Transf (AST/SGOT) 13, Alanine Aminotransferase (ALT/SGPT) 15, Alkaline Phosphatase 81, Total Protein 5.8L, Albumin 2.8L, Albumin/Globulin Ratio 0.9 06/22/21 11:30: Bedside Glucose (Misc Panel) 112 06/22/21 13:39: Magnesium Level 1.2L CBC/BMP Laboratory Tests 06/22/21 05:34 Microbiology Microbiology 06/20/21 Urine Culture - Final, Complete 06/19/21 Blood Culture - Preliminary, Resulted No Growth after 48 hours. All Specime... 06/19/21 Blood Culture - Preliminary, Resulted No Growth after 72 hours. All specime... GME ATTESTATION GME ATTESTATION My faculty preceptor for this patient encounter was physically present during the encounter and was fully available. All aspects of the patient interview, examination, medical decision making process, and medical care plan development were reviewed and approved by the faculty preceptor. The faculty preceptor is aware and concurs with the plan as stated in the body of this note and will attest to such by his/her cosignature. Axel Avery DO Jun 22, 2021 15:48
[2021-06-22] MEDS: MAG SULF 1GM/100ML (MAG RUN) 1 GM in IV 1 EA IV SCH ×2 (17:30→20:19)
--- NOTE | 2021-06-22 17:32 | REPVR ---
PROCEDURE INFORMATION: Exam: MR Head Without Contrast Exam date and time: 06/22/2021 3:56 PM Age: 65 years old Clinical indication: Other: R/O stroke/ams TECHNIQUE: Imaging protocol: MR of the head without contrast. COMPARISON: CT Head without contrast 06/19/2021 1:24 PM FINDINGS: No abnormal restriction of diffusion to indicate acute CVA. Midline structures and cerebellar tonsillar position appear normal. Ventricles, cisterns and sulci are symmetric and normal for age. No intracranial mass, midline shift or abnormal extra-axial fluid. No acute intracranial hemorrhage. No abnormal white matter signal on FLAIR and T2 sequences. Optic chiasm and pituitary infundibulum appear normal. Normal vascular flow voids in major intracranial arteries and dural venous sinuses. Frontal and ethmoid sinus mucosal thickening is present. Mastoid air cells are normally aerated. Optic globes and orbits are unremarkable. IMPRESSION: Unremarkable noncontrast MRI of the brain. Electronically signed by: Clark Martinez On 06/22/2021 17:31:53 PM
[2021-06-22] MEDS: ATORVASTATIN 20 MG TAB PO SCH (20:19)
[2021-06-22 22:00] VITALS: BP 140/64
[2021-06-23] MEDS: NS 1,000 ML IV SCH ×2 (03:55→07:15)
[2021-06-23] MEDS: levETIRAcetam INJection 750 MG in D5W 100 ML IV SCH (03:55)
[2021-06-23 06:00] VITALS: BP 159/68
[2021-06-23 07:42] LABS: BASO % 0.3 % (0.0-1.0); EOS # 0.5 10^3/uL (0.0-0.5); EOS % 5.7 % (0.0-3.0); HEMATOCRIT 25.5 % (42.0-52.0); HEMOGLOBIN 8.5 g/dl (13.5-17.5); LYMPH # 1.2 10^3/uL (1.5-5.0); LYMPH % 15.5 % (24.0-44.0); MEAN CORPUSCULAR HEMOGLOBIN 29.6 pg (27.0-33.0); MEAN CORPUSCULAR HGB CONC 33.3 g/dl (32.0-36.5); MEAN CORPUSCULAR VOLUME 88.9 fl (80.0-96.0); MONO % 12.6 % (2.0-8.0); NEUTROPHILS # 5.2 10^3/uL (1.5-8.5); NEUTROPHILS % 65.8 % (36.0-66.0); PLATELET COUNT, AUTOMATED 196 10^3/uL (150-450); RED BLOOD COUNT 2.87 10^6/uL (4.30-6.10)
[2021-06-23 08:17] LABS: ALBUMIN 2.7 GM/DL (3.2-5.2); ALT/SGPT 19 U/L (12-78); BLOOD UREA NITROGEN 6 MG/DL (7-18); CALCIUM LEVEL 8.8 MG/DL (8.8-10.2); CARBON DIOXIDE LEVEL 23 MEQ/L (21-32); CHLORIDE LEVEL 111 MEQ/L (98-107); CREATININE FOR GFR 0.73 MG/DL (0.70-1.30); GLOMERULAR FILTRATION RATE > 60.0 (>49); GLUCOSE, FASTING 110 MG/DL (70-100); MAGNESIUM LEVEL 1.6 MG/DL (1.8-2.4); PHOSPHORUS LEVEL 2.7 MG/DL (2.5-4.9); POTASSIUM SERUM 3.8 MEQ/L (3.5-5.1); SODIUM LEVEL 141 MEQ/L (136-145); TOTAL PROTEIN 5.7 GM/DL (6.4-8.2)
[2021-06-23] MEDS: DOCUSATE SODIUM 100MG CAPSULE PO SCH (09:00)
[2021-06-23] MEDS: HumaLOG INSULIN (NovoLOG) PER UNIT SC SCH ×2 (09:04→11:58)
[2021-06-23] MEDS: MULTIVITAMINS/MINERALS THERAP 1 TAB PO SCH (09:06)
[2021-06-23 09:07] VITALS: BP 140/68
[2021-06-23] MEDS: THIAMINE 100 MG TAB PO SCH (09:07)
[2021-06-23] MEDS: FOLIC ACID 1 MG TAB PO SCH (09:07)
[2021-06-23] MEDS: allopurinoL 300 MG TAB PO SCH (09:07)
[2021-06-23] MEDS: amLODIPine 5 MG TAB PO SCH (09:07)
[2021-06-23] MEDS: METOPROLOL SUCC (TopROL XL) 50MG **XL** TAB PO SCH (09:08)
[2021-06-23] MEDS: APIXABAN 5 MG TAB (ELIQUIS) PO SCH (09:08)
[2021-06-23] MEDS: MAGNESIUM OXIDE 400MG TAB (MAG-OX) PO SCH (09:09)
[2021-06-23] MEDS: MAG SULF 1GM/100ML (MAG RUN) 1 GM in IV 1 EA IV SCH ×2 (09:44→12:02)
[2021-06-23] MEDS ORDERED: ROLLMIS8 XX (09:56)
[2021-06-23] MEDS ORDERED: FOLI400T13 PO (11:36)
[2021-06-23] MEDS ORDERED: THIA100TA PO (11:36)
[2021-06-23] MEDS ORDERED: VITMTA PO (11:36)
[2021-06-23] MEDS ORDERED: ESSE250T PO (11:37)
[2021-06-23] MEDS ORDERED: KEPP1TAB PO (11:39)
[2021-06-23] MEDS ORDERED: POTA10CA32 PO (11:41)
[2021-06-23] MEDS ORDERED: POTASSIUM PHOSPHATE INJ 15 MMOL in D5W 250 ML IV ONE (12:00)
[2021-06-23 14:00] VITALS: BP 120/57
--- NOTE | 2021-06-23 16:53 | DS.PDOC ---
Discharge Summary General Date of Admission Jun 19, 2021 at 13:37 Date of Discharge Jun 23, 2021 Attending Physician: MARIA ESTHER CURRY MD Discharge Summary PROCEDURES PERFORMED DURING STAY: [None]. ADMITTING DIAGNOSES: 1. Syncope secondary to seizure versus alcohol withdrawal 2. Suspected alcohol withdrawal 3. Atrial fibrillation 4. ARELY likely secondary to prerenal etiology 5. Electrolyte abnormalities 6. Hypertension 7. Dyslipidemia 8. NIDDM 2 9. Questionable prior seizure in March 2021 10. Nicotine dependence 11. Gout DISCHARGE DIAGNOSES: 1. Syncope secondary to seizure versus alcohol withdrawal 2. Suspected alcohol withdrawal 3. Atrial fibrillation 4. ARELY likely secondary to prerenal etiology 5. Electrolyte abnormalities 6. Heterogeneously enlarged prostate 7. Hypertension 8. Dyslipidemia 9. NIDDM 2 10. Questionable prior seizure in March 2021 11. Nicotine dependence 12. Gout COMPLICATIONS/CHIEF COMPLAINT: Alcohol Withdrawal Seizure, Atrial Fibrilation Wit. HISTORY OF PRESENT ILLNESS: Patient was brought to the [facility] ED on 06/19/2021 after being found unresponsive in his bathroom by his girlfriend. EMS was summoned and patient was administered Versed due to being combative. He also was found to be in atrial fibrillation and was given Cardizem I am. In the emergency room he was also hypotensive and tachycardic and was given IV fluid resuscitation along with digoxin. He was oriented to person time and place but did report only been remembering waking up in the emergency room. He denied losing bowel bladder functioning. HOSPITAL COURSE: 06/19/2021: Patient was admitted into hospitalist service. Head CT chest x-ray and renal ultrasound were ordered (see imaging section). Patient was also started on Keppra for seizure prophylaxis. Due to new onset A. fib he was put on telemetry and an echo was obtained. He was found to be hypokalemic and hypomagnesemic and was given supplementation. Due to ARELY nephrotoxic agents were avoided. He was also started on Serax and submitted with thiamine, folate, and multivitamin. Heparin was started after CT came back negative. Metoprolol was started for blood pressure control as well. 06/20/2021: Patient's girlfriend, Rajwinder, was consulted for her version of events because she was home with the patient at the time of the incident. he was nauseous over the weekend. He took a Tums on Sunday and then laid down on the couch and got up shortly after because he felt nauseous. He went to the [facility] where he vomited. Then his girlfriend heard a thud. She went to check on him and she found Mr. Alexander up on the floor the bathroom shaking, with eyes rolled back in his head, and unresponsive to questioning. She then called EMS which brought him to [facility]. He was consistent for, tonic-clonic seizure. Renal ultrasound revealed a heterogeneously enlarged prostate. Post void bladder scan showed no residual urine volume. Patient also was found to have severely bitten the right side of his tongue, causing it to swell and bruise to a size considerable enough to make it difficult to understand him at times. Overnight, patient was found to be noncompliant on the floor. He was found tugging at IV lines multiple times, and had to be reminded by the nurse while he was in the hospital. I have explained to him why as well, and urged him not to leave AMA but I did tell him that it was his right to leave if he wished. 06/21/2021: On examination patient was found to be altered and only alert and oriented to person and place only. Heparin was discontinued and patient was placed on Eliquis 5 mg twice daily. PSA screen resulted within normal limits. CIWA protocol was also continued due to patient's aggravated state. Due to patient's altered mentation during the day, I was unfortunately not able to provide his family with updates on specifics regarding his medical condition because [place] had not designated a formal healthcare proxy. They were advised on how they could become temporary proxies in order to obtain information on his status. 06/22/2021: Patient appeared to be much more alert and oriented than yesterday. The swelling in his tongue had also decreased compared to previous days. EEG and MRI were were normal. Patient's magnesium continue to be low was given for K runs. Due to patient's improvement patient, I was able to discern that he wishes his brother Uri to be his healthcare proxy. After obtaining that information I called Uri and updated him on his brother's condition. 06/23/2021: Patient's electrolytes have stabilized after being given 1 magnesium run and potassium phosphate. Creatinine now within normal limits at 0.73. He still continues to be alert and oriented x4. His tongue also looks remarkably less swollen compared to admission. Maximal benefit from this inpatient stay has been obtained. High risk for readmission if patient is noncompliant Patients CHADVASC score is 2. He will need anticoagulation and discharged with Eliquis 5 mg p.o. twice daily. He was instructed on compliance with his new medications upon discharge. He was also advised of the risk of falls and was encouraged to use his rolling walker which a prescription was provided for him upon discharge. With his new medication of Eliquis/blood thinner he is at increased risk of bleeding which was communicated with the patient. Patient instructed to be compliant also with Keppra as well as thiamine and folic acid until he follows up with neurology and PCP within 7 days of hospital discharge. He was also discharged with KCl pills for 3 days supply. DISCHARGE MEDICATIONS: Please see below. ALLERGIES: Please see below. PHYSICAL EXAMINATION ON DISCHARGE: VITAL SIGNS: Please see below. GENERAL: 65-year-old, male, lying in bed, no acute distress HEENT: Head normocephalic atraumatic CARDIOVASCULAR EXAMINATION: Regular rate and rhythm, no murmurs, no rubs, no gallop RESPIRATORY EXAMINATION: Clear to auscultation bilaterally, no wheezes, no rhonchi, no crackles ABDOMINAL EXAMINATION: Normoactive bowel sounds in all 4 quadrants, nontender to palpation, no rebound tenderness or guarding present EXTREMITIES: No lower extremity edema appreciated, 2+ radial pulses bilaterally PSYCHIATRIC EXAMINATION: Alert and oriented x4 (of note patient did state that he was "done with it." He denied suicidal and homicidal ideations and ever havin g plan to harm himself. LABORATORY DATA: Please see below. IMAGING: MRI 06/22/2021: Unremarkable noncontrast MRI of the brain Head CT 06/19/2021: Age-related changes. No acute intracranial hemorrhage, infarction, or mass/mass effect. Renal ultrasound 06/19/2021: 1. Chronic medical renal disease. No hydronephrosis. 2. Small amount of left perinephric fluid of uncertain etiology. Correlation w ith urinalysis to exclude pyelonephritis may be warranted. 3. Heterogeneous enlarged prostate gland with mass effect on the base of the bladder. Echocardiogram: 06/19/2021 1. Study is of acceptable technical quality. Patient is in atrial fibrillation with rapid ventricular response. 2. Normal left ventricular (LV) size with normal LV systolic function and estimated left ventricular ejection fraction (LVEF) 65-70%. 3. No significant valvular disease. 4. Normal central venous pressure, but unable to estimate pulmonary artery pressure. 5. Borderline increased left atrial size.. PROGNOSIS: Stable ACTIVITY: [As tolerated]. DIET: As tolerated DISPOSITION: Home DISCHARGE INSTRUCTIONS AND ITEMS TO FOLLOW-UP ON OUTPATIENT: Please be compliant with her medications Rolling walker will be prescribed on discharge please use as necessary. If symptoms present again and/or worsen please present back to the nearest ER Follow-up with urology and neurology outpatient DISCHARGE CONDITION: [Stable]. TIME SPENT ON DISCHARGE: 35 minutes. Vital Signs/I&Os Vital Signs Date Time Temp Pulse Resp B/P (MAP) Pulse Ox O2 Delivery O2 Flow Rate FiO2 06/23/21 14:00 98.0 57 18 120/57 (78) 96 Room Air I&O- Last 24 Hours up to 6 AM 06/23/21 06:00 Intake Total 1367 ml Output Total 525 ml Balance 842 ml Laboratory Data Labs 24H Laboratory Tests 2 06/22/21 17:22: Bedside Glucose (Misc Panel) 106 06/22/21 20:58: Bedside Glucose (Misc Panel) 139H 06/23/21 06:27: Immature Granulocyte % (Auto) 0.1, Neutrophils (%) (Auto) 65.8, Lymphocytes (%) (Auto) 15.5L, Monocytes (%) (Auto) 12.6H, Eosinophils (%) (Auto) 5.7H, Basophils (%) (Auto) 0.3, Neutrophils # (Auto) 5.2, Lymphocytes # (Auto) 1.2L, Monocytes # (Auto) 1.0H, Eosinophils # (Auto) 0.5, Basophils # (Auto) 0.0, Nucleated Red Blood Cells % (auto) 0.0, Anion Gap 7L, Glomerular Filtration Rate > 60.0, Calcium Level 8.8, Phosphorus Level 2.7, Magnesium Level 1.6L, Total Bilirubin 1.0, Aspartate Amino Transf (AST/SGOT) 14, Alanine Aminotransferase (ALT/SGPT) 19, Alkaline Phosphatase 84, Total Protein 5.7L, Albumin 2.7L, Albumin/Globulin Ratio 0.9 06/23/21 11:52: Bedside Glucose (Misc Panel) 92 CBC/BMP Laboratory Tests 06/23/21 06:27 FSBS Laboratory Tests Test 06/22/21 17:22 06/22/21 20:58 06/23/21 11:52 Range/Units Bedside Glucose (Misc Panel) 106 139 92 80-115 MG/DL Microbiology Microbiology 06/20/21 Urine Culture - Final, Complete 06/19/21 Blood Culture - Preliminary, Resulted No Growth after 72 hours. All specime... 06/19/21 Blood Culture - Preliminary, Resulted No Growth after 72 hours. All specime... Discharge Medications Scheduled Amlodipine Besylate (Amlodipine Besylate) 2.5 Mg Tablet, 2.5 MG PO DAILY, (Reported) Apixaban (Eliquis) 5 Mg Tablet, 5 MG PO BID Atorvastatin Calcium (Atorvastatin Calcium) 40 Mg Tablet, 40 MG PO QHS, (Reported) Folic Acid (Folic Acid) 0.4 Mg Tablet, 1 TAB PO DAILY Levetiracetam (Keppra) 500 Mg Tablet, 500 MG PO DAILY Magnesium Oxide (Magnesium Oxide) 250 Mg Tablet, 250 MG PO DAILY Metformin HCl (Metformin HCl) 500 Mg Tablet, 500 MG PO BID, (Reported) Metoprolol Succinate (Metoprolol Succinate) 25 Mg Tab.er.24h, 25 MG PO DAILY, (Reported) Multivitamins (Thera M Plus Tablet) 1 Each Tablet, 1 TAB PO DAILY Potassium Chloride (Potassium Chloride) 10 Meq Capsule.er, 10 MEQ PO DAILY Thiamine Hcl (Vitamin B-1) 100 Mg Tablet, 100 MG PO DAILY Valsartan/Hydrochlorothiazide (Valsartan-Hctz 320-25 mg Tab) 1 Each Tablet, 1 TAB PO DAILY, (Reported) allopurinoL (allopurinoL) 300 Mg Tablet, 300 MG PO DAILY, (Reported) Miscellaneous Medications [Comments] , (Reported) MED LIST MADE WITH EXTRNAL MED HISTORY Allergies Coded Allergies: No Known Allergies (Verified Allergy, Unknown, 03/14/21) GME ATTESTATION GME ATTESTATION My faculty preceptor for this patient encounter was physically present during the encounter and was fully available. All aspects of the patient interview, examination, medical decision making process, and medical care plan development were reviewed and approved by the faculty preceptor. The faculty preceptor is aware and concurs with the plan as stated in the body of this note and will attest to such by his/her cosignature. Axel Avery DO Jun 23, 2021 16:53
== END 2021-06-23 17:03 | disposition home or self-care (01) | DRG 53 ==
LOC: M ED 10:20 → EDBD 10:20 → M ED INP 13:37 → ENRESERV 14:39 → M PCU 16:17 → M MSPAV 06-22 13:31
PROVIDERS: ADMIT Internal Medicine; ATTEND Internal Medicine
DX: R56.9 Unspecified convulsions (principal); N17.9 Acute kidney failure, unspecified; I48.91 Unspecified atrial fibrillation; E83.42 Hypomagnesemia; F10.139 Alcohol abuse with withdrawal, unspecified; I10 Essential (primary) hypertension; R55 Syncope and collapse; E11.9 Type 2 diabetes mellitus without complications; E87.6 Hypokalemia; N40.0 Benign prostatic hyperplasia without lower urinary tract symptoms; E78.5 Hyperlipidemia, unspecified; M10.9 Gout, unspecified; F17.200 Nicotine dependence, unspecified, uncomplicated; Z20.822 Contact with and (suspected) exposure to COVID-19; Z79.899 Other long term (current) drug therapy

== ENCOUNTER → 2022-07-10 | Outpatient (REF) | payer MEDICARE, BC ==
[~2022-07-10] MED LIST changes: +ALLO300T2 PO; +AMLO2.5T3 PO; +CEPH500C PO; +COMMENTS; +ELIQ5TAB PO; +ESSE250T PO; +FOLI400T13 PO; +KEPP1TAB PO; +POTA10CA32 PO; +ROLLMIS8 XX; +VALS320T3 PO
[2022-07-10 13:52] LABS: CALCIUM LEVEL 9.7 MG/DL (8.8-10.2); CREATININE FOR GFR 1.96 MG/DL (0.70-1.30); GLOMERULAR FILTRATION RATE 36.6 (>49); POTASSIUM SERUM 4.6 MEQ/L (3.5-5.1)
== END ==
LOC: M LAB REF 12:05
PROVIDERS: ATTEND Pediatrics
DX: M10.9 Gout, unspecified (principal)

== ENCOUNTER → 2022-07-14 | Outpatient (CLI) | payer BC, MEDICARE ==
[~2022-07-14] MED LIST changes: +E-Z-GAS II EFFERVESCENT PACKET (SODIUM BICARB./CITRIC ACID/SIMETHICONE) As Ordered ONE; +E-Z-HD 98% w/w 340GM SUSP BTL As Ordered ONE; +E-Z-PAQUE 96% w/w SUSP 176GM BTL As Ordered ONE
== END ==
LOC: M RAD 09:44
PROVIDERS: ATTEND Pediatrics
DX: R13.10 Dysphagia, unspecified (principal)

== ENCOUNTER → 2022-07-14 | Outpatient (CLI) | payer MEDICARE ==
[~2022-07-14] MED LIST changes: -E-Z-GAS II EFFERVESCENT PACKET (SODIUM BICARB./CITRIC ACID/SIMETHICONE) As Ordered ONE; -E-Z-HD 98% w/w 340GM SUSP BTL As Ordered ONE; -E-Z-PAQUE 96% w/w SUSP 176GM BTL As Ordered ONE
== END ==
LOC: M RAD 11:27
PROVIDERS: ATTEND Pediatrics
DX: R13.10 Dysphagia, unspecified (principal)

== ENCOUNTER → 2022-07-31 | Outpatient (CLI) | payer MEDICARE | LOC: M RAD 14:08 | PROVIDERS: ATTEND Internal Medicine Nephrology | DX: N18.32 Chronic kidney disease, stage 3b (principal) ==

== ENCOUNTER → 2022-10-11 | Outpatient (REF) | payer MEDICARE ==
[~2022-10-11] MED LIST changes: -POTA10CA32 PO; +POTA10CA33 PO
[2022-10-11 17:28] LABS: BASO % 0.4 % (0.0-1.0); EOS # 0.3 10^3/uL (0.0-0.5); EOS % 3.4 % (0.0-3.0); HEMATOCRIT 40.3 % (42.0-52.0); HEMOGLOBIN 12.8 g/dl (13.5-17.5); LYMPH % 21.4 % (24.0-44.0); MEAN CORPUSCULAR HEMOGLOBIN 29.2 pg (27.0-33.0); MEAN CORPUSCULAR HGB CONC 31.8 g/dl (32.0-36.5); MEAN CORPUSCULAR VOLUME 91.8 fl (80.0-96.0); MONO # 0.7 10^3/uL (0.0-0.8); MONO % 7.5 % (2.0-8.0); NEUTROPHILS # 6.1 10^3/uL (1.5-8.5); NEUTROPHILS % 67.1 % (36.0-66.0); PLATELET COUNT, AUTOMATED 289 10^3/uL (150-450); RED BLOOD COUNT 4.39 10^6/uL (4.30-6.10); WHITE BLOOD COUNT 9.1 10^3/uL (4.0-10.0)
[2022-10-11 17:58] LABS: URIC ACID 7.2 MG/DL (3.7-9.2)
[2022-10-11 18:01] LABS: ALBUMIN 4.6 G/DL (3.2-5.2); BILIRUBIN,TOTAL 0.7 MG/DL (0.3-1.2); CALCIUM LEVEL 9.9 MG/DL (8.3-10.6); CREATININE FOR GFR 1.49 MG/DL (0.70-1.30); GLOMERULAR FILTRATION RATE 50.2 (>49); POTASSIUM SERUM 4.9 MMOL/L (3.5-5.1); TOTAL PROTEIN 7.9 G/DL (5.7-8.2)
[2022-10-11 18:22] LABS: HEMOGLOBIN A1c 5.6 % (4.0-6.0)
== END ==
LOC: M LAB REF 16:17
PROVIDERS: ATTEND Pediatrics
DX: Z86.39 Personal history of other endocrine, nutritional and metabolic disease (principal); M10.9 Gout, unspecified; I10 Essential (primary) hypertension

== ENCOUNTER → 2022-11-15 | Outpatient (REF) | payer MEDICARE ==
[2022-11-15 18:36] LABS: POTASSIUM SERUM 4.1 MMOL/L (3.5-5.1)
== END ==
LOC: M LAB REF 17:48
PROVIDERS: ATTEND Internal Medicine Nephrology
DX: N18.32 Chronic kidney disease, stage 3b (principal)

== ENCOUNTER → 2023-01-10 | Outpatient (REF) | payer MEDICARE ==
[2023-01-10 17:18] LABS: HEMOGLOBIN A1c 5.8 % (4.0-6.0)
[2023-01-10 17:34] LABS: CHOLESTEROL RISK RATIO 3.44 (<5); HDL CHOLESTEROL 38.6 MG/DL (>40); LDL CHOLESTEROL 65.6 MG/DL (<100); NON-HDL-C 94.4 MG/DL
== END ==
LOC: M LAB REF 16:17
PROVIDERS: ATTEND Pediatrics
DX: E78.5 Hyperlipidemia, unspecified (principal); Z12.5 Encounter for screening for malignant neoplasm of prostate; R73.09 Other abnormal glucose
CPT/HCPCS: 80061; 83036; G0103

== ENCOUNTER → 2023-04-17 | Outpatient (REF) | payer MEDICARE ==
[~2023-04-17] MED LIST changes: -POTA10CA33 PO; +POTA10CA60 PO
[2023-04-17 18:51] LABS: URIC ACID 6.9 MG/DL (3.7-9.2)
[2023-04-17 18:54] LABS: CALCIUM LEVEL 9.9 MG/DL (8.3-10.6); CREATININE FOR GFR 1.36 MG/DL (0.70-1.30); GLOMERULAR FILTRATION RATE 55.6 (>49); POTASSIUM SERUM 5.4 MMOL/L (3.5-5.1)
== END ==
LOC: M LAB REF 17:51
PROVIDERS: ATTEND Pediatrics
DX: I10 Essential (primary) hypertension (principal); E53.8 Deficiency of other specified B group vitamins; M10.9 Gout, unspecified

== ENCOUNTER → 2023-05-18 | Outpatient (REF) | payer MEDICARE, OTHER ==
[2023-05-18 19:44] LABS: PERCENT SATURATION 23.4 % (19.7-50.0)
== END ==
LOC: M LAB REF 17:02
PROVIDERS: ATTEND Internal Medicine Nephrology
DX: D50.9 Iron deficiency anemia, unspecified (principal)

== ENCOUNTER → 2023-07-18 | Outpatient (REF) | payer MEDICARE, OTHER ==
[2023-07-18 18:21] LABS: URIC ACID 5.9 MG/DL (3.7-9.2)
[2023-07-18 18:22] LABS: THYROID STIMULATING HORMONE 0.565 uIU/ML (0.55-4.78)
[2023-07-18 18:23] LABS: CHOLESTEROL RISK RATIO 3.53 (<5); HDL CHOLESTEROL 36.5 MG/DL (>40); LDL CHOLESTEROL 66.1 MG/DL (<100); NON-HDL-C 92.5 MG/DL
== END ==
LOC: M LAB REF 16:42
PROVIDERS: ATTEND Pediatrics
DX: E78.5 Hyperlipidemia, unspecified (principal); R97.20 Elevated prostate specific antigen [PSA]; M10.9 Gout, unspecified

== ENCOUNTER → 2023-10-01 | Outpatient (REF) | payer MEDICARE, OTHER ==
[2023-10-01 18:44] LABS: PROSTATIC SPECIFIC AG MONITOR 5.67 NG/ML (< 4.00)
[2023-10-01 18:45] LABS: CHOLESTEROL RISK RATIO 3.48 (<5); HDL CHOLESTEROL 35.3 MG/DL (>40); LDL CHOLESTEROL 56.1 MG/DL (<100); NON-HDL-C 87.7 MG/DL
== END ==
LOC: M LAB REF 17:28
PROVIDERS: ATTEND Pediatrics
DX: R97.20 Elevated prostate specific antigen [PSA] (principal); E78.5 Hyperlipidemia, unspecified

== ENCOUNTER → 2023-11-08 | Outpatient (CLI) | payer MEDICARE ==
[2023-11-12 23:21] LABS: PSA % FREE 43.1 % (.); PSA FREE 2.63 ng/mL; PSA TOTAL 6.1 ng/mL (0.0-4.0)
== END ==
LOC: M PLALAB 14:10
PROVIDERS: ATTEND Nurse Practitioner Family
DX: R97.20 Elevated prostate specific antigen [PSA] (principal)

== ENCOUNTER → 2023-11-20 | Outpatient (REF) | payer MEDICARE | LOC: M SMT PRO 09:53 | PROVIDERS: ATTEND Urology | DX: R97.20 Elevated prostate specific antigen [PSA] (principal) ==

== ENCOUNTER → 2024-01-18 | Outpatient (REF) | payer MEDICARE ==
[~2024-01-18] MED LIST changes: -POTA10CA60 PO; +POTA10CA70 PO
[2024-01-18 18:26] LABS: BLOOD UREA NITROGEN 28 MG/DL (9-23); CALCIUM LEVEL 9.7 MG/DL (8.3-10.6); CARBON DIOXIDE LEVEL 26 MMOL/L (20-31); CHLORIDE LEVEL 107 MMOL/L (98-107); CREATININE FOR GFR 1.48 MG/DL (0.70-1.30); GLOMERULAR FILTRATION RATE 50.3 (>49); GLUCOSE, FASTING 99 MG/DL (74-106); POTASSIUM SERUM 5.1 MMOL/L (3.5-5.1); SODIUM LEVEL 139 MMOL/L (136-145)
[2024-01-18 18:28] LABS: VITAMIN B12 LEVEL 1031 PG/ML (211-911)
[2024-01-18 18:31] LABS: FOLATE > 24.0 NG/ML (>5.4)
[2024-01-18 18:34] LABS: HEMOGLOBIN A1c 5.3 % (4.0-6.0)
== END ==
LOC: M LAB REF 17:27
PROVIDERS: ATTEND Pediatrics
DX: R73.03 Prediabetes (principal); E53.8 Deficiency of other specified B group vitamins; N18.32 Chronic kidney disease, stage 3b

== ENCOUNTER → 2024-06-19 | Outpatient (CLI) | payer MEDICARE | LOC: M PLAIMG 09:16 | PROVIDERS: ATTEND Physician Assistant | DX: R01.1 Cardiac murmur, unspecified (principal) ==

== ENCOUNTER 2024-12-09 07:11 | Inpatient (IN) | payer MEDICARE ==
[~2024-12-09] VITALS: Ht 177.8 cm; Wt 84.5 kg
[2024-12-09] VITALS (72 sets, daily range): BP systolic 77–209; BP diastolic 50–95; TEMP 97.4–98; O2SAT 81–100
[~2024-12-09 07:11] MED LIST changes: +ALLO100T PO; +DIVA250T67 PO; +FINA5TAB2 PO; +OXYC1TAB23 PO
[2024-12-09 07:49] LABS: ABG BASE EXCESS -0.3 (-2.0-2.0); ABG HCO3 24.5 MMOL/L (22.0-26.0); ABG O2 SATURATION 91.3 % (95.0-99.0); ABG PARTIAL PRESSURE CO2 40.9 mmHg (35.0-45.0); ABG PARTIAL PRESSURE O2 59.9 mmHg (75.0-100.0); ABG STANDARD HCO3 24.1 MMOL/L. (22.0-26.0); ABG TOTAL CO2 25.8 MMOL/L (23.0-31.0); ABG pH (ARTERIAL) 7.396 UNITS (7.350-7.450)
[2024-12-09] MEDS: FORMOTEROL FUMARATE 20 MCG/2 ML INHALATION SOLUTION (PERFOROMIST) INH SCH (08:00)
[2024-12-09 08:17] LABS: BASO # 0.1 10^3/uL (0.0-0.2); BASO % 0.5 % (0.0-1.0); EOS # 0.4 10^3/uL (0.0-0.5); EOS % 3.4 % (0.0-3.0); HEMATOCRIT 34.4 % (42.0-52.0); HEMOGLOBIN 11.3 g/dl (13.5-17.5); LYMPH # 1.9 10^3/uL (1.5-5.0); LYMPH % 17.9 % (24.0-44.0); MEAN CORPUSCULAR HEMOGLOBIN 30.2 pg (27.0-33.0); MEAN CORPUSCULAR HGB CONC 32.8 g/dl (32.0-36.5); MONO # 0.9 10^3/uL (0.0-0.8); NEUTROPHILS # 7.5 10^3/uL (1.5-8.5); NEUTROPHILS % 69.8 % (36.0-66.0); PLATELET COUNT, AUTOMATED 267 10^3/uL (150-450); RED BLOOD COUNT 3.74 10^6/uL (4.30-6.10); WHITE BLOOD COUNT 10.8 10^3/uL (4.0-10.0)
[2024-12-09 08:25] LABS: ALBUMIN 3.7 G/DL (3.2-5.2); BILIRUBIN,DIRECT 0.2 MG/DL (<0.4); BILIRUBIN,TOTAL 0.6 MG/DL (0.3-1.2); CALCIUM LEVEL 9.8 MG/DL (8.3-10.6); CREATININE FOR GFR 1.62 MG/DL (0.70-1.30); GLOMERULAR FILTRATION RATE 45.2 (>49); POTASSIUM SERUM 4.5 MMOL/L (3.5-5.1); PROCALCITONIN 0.12 ng/ml; TOTAL PROTEIN 7.4 G/DL (5.7-8.2)
[2024-12-09] MEDS ORDERED: ISOVUE-370 76% 100ML VIAL As Ordered ONE (08:26)
[2024-12-09] MEDS: ONDANSETRON 4MG 2ML VIAL IV ONE (09:03)
[2024-12-09] MEDS: fentaNYL 100 MCG/2 ML INJECTION IV PRN (09:04)
[2024-12-09] MEDS ORDERED: FOLI0.4T5 PO (10:33)
[2024-12-09] MEDS ORDERED: VALS320T2 PO (10:33)
[2024-12-09] MEDS ORDERED: OXYC1TAB23 PO (10:33)
[2024-12-09] MEDS ORDERED: THIA100T7 PO (10:33)
[2024-12-09] MEDS ORDERED: ESSE250T PO (10:33)
[2024-12-09] MEDS ORDERED: ELIQ5TAB PO (10:33)
[2024-12-09] MEDS ORDERED: ACETAMINOPHEN 325 MG TAB PO PRN (10:35)
[2024-12-09] MEDS ORDERED: MOM 30ML SUSPENSION UDC PO PRN (10:35)
[2024-12-09] MEDS ORDERED: IPRATROPIUM 0.5MG/ALBUTEROL 2.5MG INH SOL UD 3ML NEB PRN (10:35)
[2024-12-09] MEDS ORDERED: MAALOX 30 ML SUSP *UDC PO PRN (10:35)
[2024-12-09] MEDS ORDERED: HOME MED LIST COMPLETE! XX SCH (10:40)
[2024-12-09] MEDS: MAGNESIUM OXIDE 400MG TAB (MAG-OX) PO SCH (11:25)
[2024-12-09] MEDS: APIXABAN 5 MG TAB (ELIQUIS) PO SCH (11:25)
[2024-12-09] MEDS: allopurinoL 100 MG TAB PO SCH (11:26)
[2024-12-09] MEDS: FINASTERIDE 5MG TAB PO SCH (11:26)
[2024-12-09] MEDS: METOPROLOL SUCC *XL* 25MG TAB (TopROL *XL*) PO SCH (11:26)
[2024-12-09] MEDS: DIVALPROEX 250MG TAB PO SCH (11:26)
[2024-12-09] MEDS: FOLIC ACID 1MG TAB PO SCH (11:27)
[2024-12-09] MEDS: LIDOCAINE 5% (LIDODERM) PATCH TD ONE (11:27)
[2024-12-09] MEDS: THIAMINE 100 MG TAB PO SCH (11:27)
[2024-12-09] MEDS: guaiFENesin ER TABLET 600 MG TAB PO SCH (11:33)
[2024-12-09] MEDS: HYDROMORPHONE HCL 0.5 MG/ 0.5 ML SYRINGE IV PRN (12:16)
[2024-12-09] MEDS: IPRATROPIUM 0.5MG/ALBUTEROL 2.5MG INH SOL UD 3ML NEB SCH (12:30)
[2024-12-09] MEDS ORDERED: propofoL 1,000 MG in IV 1 EA IV SCH (13:20)
[2024-12-09] MEDS ORDERED: CETACAINE SPRAY 5GM As Ordered ONE (13:23)
[2024-12-09] MEDS ORDERED: PROPOFOL 1,000 MG/100 ML VIAL As Ordered ONE (13:25)
[2024-12-09] MEDS: ETOMIDATE INJ 20MG/10ML VIAL IV ONE (13:30)
[2024-12-09] MEDS: ROCURONIUM BROMIDE 50MG/5ML VIAL IV ONE (13:30)
[2024-12-09] MEDS ORDERED: MIDAZOLAM 5MG/ML 1ML VIAL IV PRN (14:45)
[2024-12-09] MEDS: ACETYLCYSTEINE 20% 30ML VIAL INH ONE (14:50)
[2024-12-09] MEDS: ALBUTEROL SULFATE 2.5MG/0.5ML INH CONCENTRATE NEB SOLN NEB SCH (15:00)
[2024-12-09] MEDS: NS (Normal Saline) 0.9% 1,000 ML IV SCH (15:00)
[2024-12-09] MEDS ORDERED: FENTANYL DRIP LOCK BOX KEY 1 EACH XX PRN (15:05)
[2024-12-09] MEDS: CETACAINE SPRAY 5GM TOP STA (15:07)
[2024-12-09] MEDS: cefTRIAXone SOD 2 GM in DEXTROSE 5% (D5W) ADV/MINI-BAG 50 ML IV SCH (15:20)
[2024-12-09] MEDS: DOXYCYCLINE HYCLATE 100 MG in DEXTROSE 5% (D5W) MINI-BAG PLU 100 ML IV SCH (15:21)
[2024-12-09] MEDS: methylPREDNISolone 125MG 2ML VIAL IV ONE (15:21)
[2024-12-09] MEDS: dexmedeTOMidine 200 MCG in IV 1 EA IV SCH (15:26)
[2024-12-09] MEDS: MIDAZOLAM 100MG/100ML-0.9%NACL 100 MG in IV 1 EA IV SCH (15:27)
[2024-12-09] MEDS: fentaNYL CITRATE/NaCl 1,000 MCG in IV 1 EA IV SCH (15:28)
[2024-12-09] MEDS: NOREPINEPHRINE 4MG IN D5 250ML 4 MG in IV 1 EA IV SCH (15:34)
[2024-12-09 15:45] LABS: BASO # 0.1 10^3/uL (0.0-0.2); BASO % 0.4 % (0.0-1.0); EOS # 0.2 10^3/uL (0.0-0.5); EOS % 1.4 % (0.0-3.0); HEMATOCRIT 34.5 % (42.0-52.0); HEMOGLOBIN 11.2 g/dl (13.5-17.5); LYMPH # 2.1 10^3/uL (1.5-5.0); LYMPH % 12.2 % (24.0-44.0); MEAN CORPUSCULAR HEMOGLOBIN 30.3 pg (27.0-33.0); MEAN CORPUSCULAR HGB CONC 32.5 g/dl (32.0-36.5); MEAN CORPUSCULAR VOLUME 93.2 fl (80.0-96.0); MONO % 5.9 % (2.0-8.0); NEUTROPHILS # 13.6 10^3/uL (1.5-8.5); NEUTROPHILS % 79.6 % (36.0-66.0); PLATELET COUNT, AUTOMATED 307 10^3/uL (150-450); WHITE BLOOD COUNT 17.1 10^3/uL (4.0-10.0)
[2024-12-09] MEDS: SODIUM CHLORIDE HYPERTONIC 3% 4ML NEB SOL INH SCH (16:00)
[2024-12-09] MEDS: BUDESONIDE 0.5 MG/2 ML INHALATION SUSPENSION NEB SCH (19:19)
[2024-12-09] MEDS ORDERED: BUDESONIDE 180MCG INHALER (PULMICORT FLEXHALER) INH SCH (20:00)
[2024-12-09] MEDS ORDERED: ACETYLCYSTEINE 20% 4 ML VIAL (200MG/ML) INH SCH (20:00)
[2024-12-09] MEDS: DOCUSATE SODIUM 100MG CAPSULE PO SCH (20:16)
[2024-12-09 20:26] LABS: ALBUMIN 3.2 G/DL (3.2-5.2); BILIRUBIN,TOTAL 0.7 MG/DL (0.3-1.2); CALCIUM LEVEL 9.2 MG/DL (8.3-10.6); CREATININE FOR GFR 1.55 MG/DL (0.70-1.30); GLOMERULAR FILTRATION RATE 47.6 (>49); MAGNESIUM LEVEL 2.1 MG/DL (1.8-2.4); PHOSPHORUS LEVEL 5.8 MG/DL (2.4-5.1); POTASSIUM SERUM 4.4 MMOL/L (3.5-5.1); TOTAL PROTEIN 6.8 G/DL (5.7-8.2)
[2024-12-09] MEDS: ATORVASTATIN 20 MG TAB PO SCH (21:16)
[2024-12-09] MEDS: methylPREDNISolone 125MG 2ML VIAL IV SCH (23:47)
[2024-12-10] VITALS (66 sets, daily range): BP systolic 81–122; BP diastolic 44–59; TEMP 96.4–97.4; O2SAT 94–100
[2024-12-10 05:01] LABS: BASO % 0.1 % (0.0-1.0); LYMPH % 4.7 % (24.0-44.0); MEAN CORPUSCULAR HEMOGLOBIN 30.6 pg (27.0-33.0); MEAN CORPUSCULAR HGB CONC 33.3 g/dl (32.0-36.5); MEAN CORPUSCULAR VOLUME 91.7 fl (80.0-96.0); MONO # 0.4 10^3/uL (0.0-0.8); NEUTROPHILS # 18.9 10^3/uL (1.5-8.5); NEUTROPHILS % 92.8 % (36.0-66.0); PLATELET COUNT, AUTOMATED 252 10^3/uL (150-450); RED BLOOD COUNT 3.27 10^6/uL (4.30-6.10); WHITE BLOOD COUNT 20.3 10^3/uL (4.0-10.0)
[2024-12-10 05:33] LABS: CALCIUM LEVEL 8.7 MG/DL (8.3-10.6); CREATININE FOR GFR 1.48 MG/DL (0.70-1.30); GLOMERULAR FILTRATION RATE 50.2 (>49); MAGNESIUM LEVEL 1.9 MG/DL (1.8-2.4); POTASSIUM SERUM 4.5 MMOL/L (3.5-5.1)
[2024-12-10 08:41] LABS: ABG BASE EXCESS -8.7 (-2.0-2.0); ABG HCO3 16.9 MMOL/L (22.0-26.0); ABG O2 SATURATION 97.9 % (95.0-99.0); ABG PARTIAL PRESSURE CO2 35.2 mmHg (35.0-45.0); ABG PARTIAL PRESSURE O2 133.1 mmHg (75.0-100.0); ABG STANDARD HCO3 17.4 MMOL/L. (22.0-26.0); ABG pH (ARTERIAL) 7.299 UNITS (7.350-7.450)
[2024-12-10] MEDS: NICOTINE 21MG/24HR 1 EA TRANSDERMAL TD SCH (09:32)
[2024-12-10] MEDS: PANTOPRAZOLE 40MG VIAL IV SCH (09:33)
[2024-12-10] MEDS: NS (Normal Saline) 0.9% 1,000 ML IV ONE (12:43)
[2024-12-10] MEDS: HYDROMORPHONE HCL 0.5 MG/ 0.5 ML SYRINGE IV PRN (16:05)
[2024-12-11] VITALS: BP 122/57; TEMP 96.8; O2SAT 92
[2024-12-11 04:00] VITALS: BP 112/54; TEMP 97.6; O2SAT 92
[2024-12-11 05:17] LABS: BASO % 0.1 % (0.0-1.0); HEMATOCRIT 25.5 % (42.0-52.0); HEMOGLOBIN 8.4 g/dl (13.5-17.5); LYMPH # 0.8 10^3/uL (1.5-5.0); LYMPH % 4.5 % (24.0-44.0); MEAN CORPUSCULAR HEMOGLOBIN 30.2 pg (27.0-33.0); MEAN CORPUSCULAR HGB CONC 32.9 g/dl (32.0-36.5); MEAN CORPUSCULAR VOLUME 91.7 fl (80.0-96.0); MONO # 0.5 10^3/uL (0.0-0.8); MONO % 2.9 % (2.0-8.0); NEUTROPHILS # 16.9 10^3/uL (1.5-8.5); NEUTROPHILS % 91.9 % (36.0-66.0); PLATELET COUNT, AUTOMATED 217 10^3/uL (150-450); RED BLOOD COUNT 2.78 10^6/uL (4.30-6.10); WHITE BLOOD COUNT 18.4 10^3/uL (4.0-10.0)
[2024-12-11 05:36] LABS: BLOOD UREA NITROGEN 32 MG/DL (9-23); CALCIUM LEVEL 8.7 MG/DL (8.3-10.6); CARBON DIOXIDE LEVEL 22 MMOL/L (20-31); CHLORIDE LEVEL 110 MMOL/L (98-107); CREATININE FOR GFR 1.21 MG/DL (0.70-1.30); GLOMERULAR FILTRATION RATE > 60.0 (>49); GLUCOSE, FASTING 153 MG/DL (74-106); POTASSIUM SERUM 4.2 MMOL/L (3.5-5.1); SODIUM LEVEL 142 MMOL/L (136-145)
[2024-12-11 07:50] VITALS: BP 113/56; TEMP 99.3; O2SAT 94
[2024-12-11] MEDS ORDERED: oxyCODONE 5MG TAB PO PRN (10:25)
[2024-12-11 12:00] VITALS: BP 106/52; TEMP 99.1; O2SAT 97
[2024-12-11] MEDS: methylPREDNISolone 40MG 1ML VIAL IV SCH (18:10)
[2024-12-11 20:00] VITALS: BP 128/60; TEMP 98.8; O2SAT 92
[2024-12-11] MEDS: oxyCODONE 5MG TAB PO PRN (21:09)
[2024-12-11] MEDS: DOXYCYCLINE HYCLATE 100MG TABLET PO SCH (21:10)
[2024-12-12] VITALS (28 sets, daily range): BP systolic 91–144; BP diastolic 53–76; TEMP 97.8–98.6; O2SAT 88–97
[2024-12-12] MEDS: METOPROLOL 5 MG/5 ML VIAL IV STA ×2 (03:58→05:21)
[2024-12-12 05:13] LABS: BASO % 0.1 % (0.0-1.0); EOS % 0.1 % (0.0-3.0); HEMATOCRIT 25.6 % (42.0-52.0); HEMOGLOBIN 8.7 g/dl (13.5-17.5); LYMPH # 1.1 10^3/uL (1.5-5.0); LYMPH % 6.2 % (24.0-44.0); MEAN CORPUSCULAR HEMOGLOBIN 30.4 pg (27.0-33.0); MEAN CORPUSCULAR VOLUME 89.5 fl (80.0-96.0); MONO # 0.8 10^3/uL (0.0-0.8); MONO % 4.5 % (2.0-8.0); NEUTROPHILS # 15.4 10^3/uL (1.5-8.5); NEUTROPHILS % 87.9 % (36.0-66.0); PLATELET COUNT, AUTOMATED 229 10^3/uL (150-450); RED BLOOD COUNT 2.86 10^6/uL (4.30-6.10); WHITE BLOOD COUNT 17.5 10^3/uL (4.0-10.0)
[2024-12-12 05:38] LABS: BLOOD UREA NITROGEN 39 MG/DL (9-23); CALCIUM LEVEL 9.1 MG/DL (8.3-10.6); CARBON DIOXIDE LEVEL 24 MMOL/L (20-31); CHLORIDE LEVEL 113 MMOL/L (98-107); CREATININE FOR GFR 1.25 MG/DL (0.70-1.30); GLOMERULAR FILTRATION RATE > 60.0 (>49); GLUCOSE, FASTING 148 MG/DL (74-106); MAGNESIUM LEVEL 2.1 MG/DL (1.8-2.4); POTASSIUM SERUM 5.2 MMOL/L (3.5-5.1); SODIUM LEVEL 143 MMOL/L (136-145)
[2024-12-12] MEDS: NS 500 ML IV ONE ×2 (06:00→18:05)
[2024-12-12] MEDS: METOPROLOL TART 50 MG TAB PO SCH (07:44)
[2024-12-12] MEDS: PATIROMER SORBITEX CALCIUM 8.4 GM POWDER PACKET (VELTASSA) PO ONE (09:11)
[2024-12-12] MEDS: PANTOPRAZOLE 40MG TAB (PROTONIX) PO SCH (09:25)
[2024-12-12] MEDS: dilTIAZem 25MG/5ML VIAL IV STA ×2 (11:57→16:59)
[2024-12-12 13:50] LABS: HEMOGLOBIN 9.7 g/dl (13.5-17.5)
[2024-12-12] MEDS: DIGOXIN INJ 0.5 MG/2 ML AMP IV SCH (18:07)
[2024-12-12] MEDS: predniSONE 20 MG TAB PO ONE (18:19)
[2024-12-12 18:57] LABS: URINE STREP PNEUMONIAE ANTIGEN NOT DETECTED (NOT DETECT)
[2024-12-12 19:23] LABS: HEMATOCRIT 29.8 % (42.0-52.0)
[2024-12-12] MEDS: LEVALBUTEROL 1.25 MG 0.5ML CONCENTRATE NEB INH SCH (19:57)
[2024-12-12] MEDS: CEFDINIR 300 MG CAP (OMNICEF) PO SCH (20:36)
[2024-12-13] VITALS (24 sets, daily range): BP systolic 98–122; BP diastolic 62–76; TEMP 97.5–98.2; O2SAT 92–98
[2024-12-13 00:16] LABS: HEMATOCRIT 28.7 % (42.0-52.0); HEMOGLOBIN 9.7 g/dl (13.5-17.5)
[2024-12-13 04:43] LABS: BASO % 0.1 % (0.0-1.0); HEMATOCRIT 27.5 % (42.0-52.0); HEMOGLOBIN 9.3 g/dl (13.5-17.5); LYMPH # 1.4 10^3/uL (1.5-5.0); LYMPH % 8.3 % (24.0-44.0); MEAN CORPUSCULAR HEMOGLOBIN 30.4 pg (27.0-33.0); MEAN CORPUSCULAR HGB CONC 33.8 g/dl (32.0-36.5); MEAN CORPUSCULAR VOLUME 89.9 fl (80.0-96.0); NEUTROPHILS # 14.3 10^3/uL (1.5-8.5); PLATELET COUNT, AUTOMATED 260 10^3/uL (150-450); RED BLOOD COUNT 3.06 10^6/uL (4.30-6.10); WHITE BLOOD COUNT 17.1 10^3/uL (4.0-10.0)
[2024-12-13 05:08] LABS: BLOOD UREA NITROGEN 35 MG/DL (9-23); CALCIUM LEVEL 8.8 MG/DL (8.3-10.6); CARBON DIOXIDE LEVEL 23 MMOL/L (20-31); CHLORIDE LEVEL 110 MMOL/L (98-107); CREATININE FOR GFR 1.08 MG/DL (0.70-1.30); GLOMERULAR FILTRATION RATE > 60.0 (>49); GLUCOSE, FASTING 137 MG/DL (74-106); MAGNESIUM LEVEL 1.9 MG/DL (1.8-2.4); POTASSIUM SERUM 4.8 MMOL/L (3.5-5.1); SODIUM LEVEL 139 MMOL/L (136-145)
[2024-12-13] MEDS: predniSONE 20 MG TAB PO SCH (08:43)
[2024-12-13] MEDS ORDERED: AMIODARONE HCL 150 MG in IV 1 EA IV SCH ×2 (09:00→09:45)
[2024-12-13] MEDS ORDERED: AMIODARONE HCL 360 MG in IV 1 EA IV SCH (09:10)
[2024-12-13] MEDS: AMIODARONE HCL 150 MG in IV 1 EA IV ONE (09:53)
[2024-12-13] MEDS: AMIODARONE HCL 360 MG in IV 1 EA IV SCH ×2 (10:09→16:26)
[2024-12-13] MEDS: SODIUM CHLORIDE HYPERTONIC 3% 4ML NEB SOL INH SCH (11:41)
[2024-12-13] MEDS: METOPROLOL TART 12.5 MG PER 1/2 TAB PO SCH (11:57)
[2024-12-13] MEDS: NS (Normal Saline) 0.9% 1,000 ML IV ONE (23:15)
[2024-12-14] VITALS (19 sets, daily range): BP systolic 106–124; BP diastolic 57–77; TEMP 97–97.7; O2SAT 94–99
[2024-12-14 00:03] LABS: MYCOPLASMA PNEUMONIAE IGG 2.69 (<=0.90)
[2024-12-14] MEDS: METOPROLOL 5 MG/5 ML VIAL IV STA (00:24)
[2024-12-14 05:45] LABS: BASO % 0.2 % (0.0-1.0); EOS % 0.2 % (0.0-3.0); HEMATOCRIT 29.3 % (42.0-52.0); HEMOGLOBIN 9.7 g/dl (13.5-17.5); LYMPH # 2.5 10^3/uL (1.5-5.0); LYMPH % 19.6 % (24.0-44.0); MEAN CORPUSCULAR HEMOGLOBIN 29.6 pg (27.0-33.0); MEAN CORPUSCULAR HGB CONC 33.1 g/dl (32.0-36.5); MEAN CORPUSCULAR VOLUME 89.3 fl (80.0-96.0); MONO % 7.5 % (2.0-8.0); NEUTROPHILS # 8.9 10^3/uL (1.5-8.5); PLATELET COUNT, AUTOMATED 251 10^3/uL (150-450); RED BLOOD COUNT 3.28 10^6/uL (4.30-6.10); WHITE BLOOD COUNT 12.7 10^3/uL (4.0-10.0)
[2024-12-14 06:08] LABS: BLOOD UREA NITROGEN 30 MG/DL (9-23); CALCIUM LEVEL 8.5 MG/DL (8.3-10.6); CARBON DIOXIDE LEVEL 24 MMOL/L (20-31); CHLORIDE LEVEL 108 MMOL/L (98-107); CREATININE FOR GFR 1.14 MG/DL (0.70-1.30); GLOMERULAR FILTRATION RATE > 60.0 (>49); GLUCOSE, FASTING 109 MG/DL (74-106); MAGNESIUM LEVEL 1.6 MG/DL (1.8-2.4); POTASSIUM SERUM 4.5 MMOL/L (3.5-5.1); SODIUM LEVEL 140 MMOL/L (136-145)
[2024-12-14] MEDS: METOPROLOL SUCC (TopROL XL) 50MG **XL** TAB PO SCH (08:14)
[2024-12-14] MEDS: MAG SULF 1GM/100ML (MAG RUN) 1 GM in IV 1 EA IV SCH (08:17)
[2024-12-14] MEDS: AMIODARONE 200 MG TAB (PACERONE) PO SCH (10:48)
[2024-12-14] MEDS: LEVALBUTEROL 1.25 MG 0.5ML CONCENTRATE NEB INH PRN (12:19)
[2024-12-14] MEDS ORDERED: AMIODARONE 200 MG TAB (PACERONE) PO SCH (17:55)
[2024-12-14] MEDS: AMIODARONE HCL 360 MG in IV 1 EA IV SCH (18:42)
[2024-12-15] VITALS (29 sets, daily range): BP systolic 96–132; BP diastolic 50–74; TEMP 97.2–97.8; O2SAT 93–100
[2024-12-15 05:59] LABS: BASO % 0.3 % (0.0-1.0); EOS # 0.1 10^3/uL (0.0-0.5); EOS % 0.8 % (0.0-3.0); HEMATOCRIT 30.8 % (42.0-52.0); HEMOGLOBIN 10.4 g/dl (13.5-17.5); LYMPH # 2.8 10^3/uL (1.5-5.0); LYMPH % 24.2 % (24.0-44.0); MEAN CORPUSCULAR HEMOGLOBIN 29.8 pg (27.0-33.0); MEAN CORPUSCULAR HGB CONC 33.8 g/dl (32.0-36.5); MEAN CORPUSCULAR VOLUME 88.3 fl (80.0-96.0); MONO # 0.9 10^3/uL (0.0-0.8); MONO % 7.4 % (2.0-8.0); NEUTROPHILS # 7.4 10^3/uL (1.5-8.5); NEUTROPHILS % 63.8 % (36.0-66.0); PLATELET COUNT, AUTOMATED 254 10^3/uL (150-450); RED BLOOD COUNT 3.49 10^6/uL (4.30-6.10); WHITE BLOOD COUNT 11.5 10^3/uL (4.0-10.0)
[2024-12-15 06:48] LABS: BLOOD UREA NITROGEN 26 MG/DL (9-23); CALCIUM LEVEL 8.5 MG/DL (8.3-10.6); CARBON DIOXIDE LEVEL 22 MMOL/L (20-31); CHLORIDE LEVEL 107 MMOL/L (98-107); CREATININE FOR GFR 1.17 MG/DL (0.70-1.30); GLOMERULAR FILTRATION RATE > 60.0 (>49); GLUCOSE, FASTING 105 MG/DL (74-106); MAGNESIUM LEVEL 1.8 MG/DL (1.8-2.4); POTASSIUM SERUM 4.1 MMOL/L (3.5-5.1); SODIUM LEVEL 138 MMOL/L (136-145)
[2024-12-15] MEDS: SODIUM CHLORIDE 0.9% 1000 ML IV STA (06:50)
[2024-12-15] MEDS: NS 500 ML IV ONE (07:00)
[2024-12-15] MEDS: predniSONE 10MG TAB PO SCH (09:12)
[2024-12-15] MEDS: MAG SULF 1GM/100ML (MAG RUN) 1 GM in IV 1 EA IV ONE (09:16)
[2024-12-16] VITALS (15 sets, daily range): BP systolic 118–130; BP diastolic 64–65; TEMP 96.6–97.3; O2SAT 94–98
[2024-12-16 06:27] LABS: BASO % 0.2 % (0.0-1.0); EOS # 0.1 10^3/uL (0.0-0.5); EOS % 0.7 % (0.0-3.0); HEMATOCRIT 31.2 % (42.0-52.0); HEMOGLOBIN 10.6 g/dl (13.5-17.5); LYMPH # 2.3 10^3/uL (1.5-5.0); LYMPH % 18.9 % (24.0-44.0); MEAN CORPUSCULAR HEMOGLOBIN 30.1 pg (27.0-33.0); MEAN CORPUSCULAR VOLUME 88.6 fl (80.0-96.0); MONO # 1.3 10^3/uL (0.0-0.8); MONO % 10.5 % (2.0-8.0); NEUTROPHILS # 8.2 10^3/uL (1.5-8.5); NEUTROPHILS % 66.1 % (36.0-66.0); PLATELET COUNT, AUTOMATED 272 10^3/uL (150-450); RED BLOOD COUNT 3.52 10^6/uL (4.30-6.10); WHITE BLOOD COUNT 12.4 10^3/uL (4.0-10.0)
[2024-12-16 06:56] LABS: BLOOD UREA NITROGEN 25 MG/DL (9-23); CALCIUM LEVEL 8.6 MG/DL (8.3-10.6); CARBON DIOXIDE LEVEL 24 MMOL/L (20-31); CHLORIDE LEVEL 106 MMOL/L (98-107); CREATININE FOR GFR 1.17 MG/DL (0.70-1.30); GLOMERULAR FILTRATION RATE > 60.0 (>49); GLUCOSE, FASTING 93 MG/DL (74-106); MAGNESIUM LEVEL 1.7 MG/DL (1.8-2.4); POTASSIUM SERUM 4.3 MMOL/L (3.5-5.1); SODIUM LEVEL 139 MMOL/L (136-145)
[2024-12-16] MEDS: MAG SULF 1GM/100ML (MAG RUN) 1 GM in IV 1 EA IV ONE (08:26)
[2024-12-16] MEDS: AMIODARONE 200 MG TAB (PACERONE) PO SCH (08:35)
[2024-12-16] MEDS ORDERED: PRED10TA2 PO (10:10)
[2024-12-16] MEDS ORDERED: LEVA15HF2 INH (10:10)
[2024-12-16] MEDS ORDERED: AMIO200T49 PO (10:10)
[2024-12-16] MEDS ORDERED: MUCI600T31 PO (10:10)
[2024-12-16] MEDS ORDERED: METO1TAB7 PO (10:10)
[2024-12-16] MEDS ORDERED: COLA100C5 PO (10:10)
[2024-12-16] MEDS ORDERED: OXYC-517 PO (10:15)
[2024-12-16] MEDS ORDERED: MAGN400T35 PO (12:13)
== END 2024-12-16 15:45 | disposition home health service (06) | DRG 208 ==
LOC: M ED 07:11 → M ED INP 10:31 → M PCU 12:43 → M ICU 13:20 → M PCU 12-13 20:00
PROVIDERS: ADMIT Internal Medicine; ATTEND Internal Medicine
PROC: 5A1935Z Respiratory Ventilation, Less than 24 Consecutive Hours (ICD-10-PCS; principal; 2024-12-09)
PROC: 0BH17EZ Insertion of Endotracheal Airway into Trachea, Via Natural or Artificial Opening (ICD-10-PCS; 2024-12-09)
PROC: 0B938ZZ Drainage of Right Main Bronchus, Via Natural or Artificial Opening Endoscopic (ICD-10-PCS; 2024-12-09)
PROC: B246ZZZ Ultrasonography of Right and Left Heart (ICD-10-PCS; 2024-12-15)
DX: J96.01 Acute respiratory failure with hypoxia (principal); J18.9 Pneumonia, unspecified organism; J98.11 Atelectasis; J90 Pleural effusion, not elsewhere classified; S22.41XA Multiple fractures of ribs, right side, initial encounter for closed fracture; I48.20 Chronic atrial fibrillation, unspecified; E51.9 Thiamine deficiency, unspecified; I48.4 Atypical atrial flutter; I12.9 Hypertensive chronic kidney disease with stage 1 through stage 4 chronic kidney disease, or unspecified chronic kidney disease; E78.5 Hyperlipidemia, unspecified; N18.30 Chronic kidney disease, stage 3 unspecified; D64.9 Anemia, unspecified; I95.2 Hypotension due to drugs; J45.909 Unspecified asthma, uncomplicated; E87.5 Hyperkalemia; G40.909 Epilepsy, unspecified, not intractable, without status epilepticus; N40.0 Benign prostatic hyperplasia without lower urinary tract symptoms; F17.200 Nicotine dependence, unspecified, uncomplicated; M10.9 Gout, unspecified; T42.75XA Adverse effect of unspecified antiepileptic and sedative-hypnotic drugs, initial encounter; R53.1 Weakness; E55.9 Vitamin D deficiency, unspecified; W10.8XXA Fall (on) (from) other stairs and steps, initial encounter; Y92.018 Other place in single-family (private) house as the place of occurrence of the external cause; Y93.9 Activity, unspecified; Y99.8 Other external cause status; Z79.01 Long term (current) use of anticoagulants; Z79.899 Other long term (current) drug therapy

== ENCOUNTER → 2025-03-31 | Outpatient (CLI) | payer MEDICARE ==
[~2025-03-31] MED LIST changes: +AMIO200T54 PO; +COLA100C5 PO; +DIGO0.123 PO; -ESSE250T PO; +FAMO40TA3 PO; +FOLI0.4T5 PO; +HYDR12.510 PO; -HYDR12CA PO; +LEVA15HF2 INH; +MAGN250T17 PO; +MAGN400T35 PO; +METO1TAB7 PO; +MUCI600T31 PO; +OXYC-517 PO; +THIA100T7 PO; +VALS320T2 PO
== END ==
LOC: M CARPUL 09:45
PROVIDERS: ATTEND Physician Assistant
DX: R06.02 Shortness of breath (principal); I48.3 Typical atrial flutter

== ENCOUNTER 2025-04-04 19:48 | Emergency (ER) | payer MEDICARE ==
[~2025-04-04] VITALS: Ht 180.3 cm; Wt 78.3 kg
[~2025-04-04 19:48] MED LIST changes: -FAMO40TA3 PO
[2025-04-04] MEDS ORDERED: FAMO40TA3 PO (20:03)
[2025-04-04 22:36] VITALS: BP 141/63; TEMP 97.1; O2SAT 100
== END 2025-04-05 00:15 | disposition left against medical advice (07) ==
LOC: M ED 19:48
DX: Z53.21 Procedure and treatment not carried out due to patient leaving prior to being seen by health care provider (principal)

== ENCOUNTER → 2025-05-20 | Outpatient (REF) | payer MEDICARE ==
[~2025-05-20] MED LIST changes: +FAMO40TA3 PO; -FOLI0.4T5 PO; +FOLI400T2 PO
[2025-05-20 18:06] LABS: BASO # 0.1 10^3/uL (0.0-0.2); BASO % 0.6 % (0.0-1.0); EOS # 0.4 10^3/uL (0.0-0.5); EOS % 4.5 % (0.0-3.0); LYMPH # 2.3 10^3/uL (1.5-5.0); LYMPH % 25.3 % (24.0-44.0); MONO # 0.8 10^3/uL (0.0-0.8); MONO % 9.1 % (2.0-8.0); NEUTROPHILS # 5.4 10^3/uL (1.5-8.5); NEUTROPHILS % 60.2 % (36.0-66.0); PLATELET COUNT, AUTOMATED 274 10^3/uL (150-450)
[2025-05-20 18:15] LABS: ALT/SGPT 24.0 U/L (7.0-40); AST/SGOT 23.0 U/L (<34); CALCIUM LEVEL 10.1 MG/DL (8.3-10.6); CARBON DIOXIDE LEVEL 27.0 MMOL/L (20-31); CHLORIDE LEVEL 105.0 MMOL/L (98-107); CHOLESTEROL LEVEL 163.0 MG/DL (<200); CHOLESTEROL RISK RATIO 3.9 (<5); CREATININE FOR GFR 1.63 MG/DL (0.70-1.30); GLOMERULAR FILTRATION RATE 45.3 (>49); LDL CHOLESTEROL 46.3 MG/DL (<100); NON-HDL-C 121.3 MG/DL; POTASSIUM SERUM 4.6 MMOL/L (3.5-5.1); PSA SCREENING 2.52 NG/ML (< 4.00); SODIUM LEVEL 141.0 MMOL/L (136-145); TRIGLYCERIDES LEVEL 375.0 MG/DL (<150)
[2025-05-20 18:17] LABS: VITAMIN B12 LEVEL 841.0 PG/ML (211-911)
== END ==
LOC: M LAB REF 16:29
PROVIDERS: ATTEND Pediatrics
DX: Z12.5 Encounter for screening for malignant neoplasm of prostate (principal); I10 Essential (primary) hypertension; E78.5 Hyperlipidemia, unspecified; M10.9 Gout, unspecified; E53.8 Deficiency of other specified B group vitamins
CPT/HCPCS: 80048; 80061; 80076; 82607; 84443; 84550; 85025; G0103

== ENCOUNTER → 2025-06-23 | Outpatient (CLI) | payer MEDICARE | LOC: M CARPUL 08:20 | PROVIDERS: ATTEND Physician Assistant | DX: R06.02 Shortness of breath (principal); R94.31 Abnormal electrocardiogram [ECG] [EKG] | CPT/HCPCS: 78451; 93017; A9500; J2785 ==